=== PATIENT | female | born 1960 | race Caucasian/White ===

== ENCOUNTER 2017-09-15 19:44 | Emergency (ER) | payer MEDICARE, MEDICAID, SELFPAY ==
[2017-09-15 19:45] VITALS: BP 163/94; PULSE 118; RESP 16; TEMP 36.8; O2SAT 99; BMI 23.3
--- NOTE | 2017-09-15 20:31 | ED.DCSUM_ITS ---
- ER Visit Summary Date of Service: 09/15/17 Chief Complaint: [Need for medication refills History of Present Illness: The patient is a 57 F [presents to the emergency department with complaint of needing her medications refilled. Patient states that she went to senior living in March for 6 months and just got out a week ago. Patient states that because she was in senior living she missed several appointments that had been established with her primary care physician and when she try to make a follow-up appointment when she got out of senior living could not get past the studio operations manager to get in and be seen. Patient was receiving some of her medications in senior living since being out now was running out of her medications. Patient does have multiple medications that she would like to have refilled until she can get in with her primary care physician or find another physician including Lyrica, amphetamine salts, oxycodone, meloxicam, hydroxychloroquine, and alprazolam.] Physical Examination: [HEENT-PERRLA, EOMI. Cranial nerves II through XII grossly intact. TMs clear. Mucous membranes moist. No adenopathy. Cardiovascular-regular rate and rhythm without murmur or ectopy Lungs-clear to auscultation, chest wall stable without crepitus or subcu emphysema Abdomen-normoactive bowel sounds, soft, nontender, no rebound or rigidity, no peritoneal signs. Extremities-intact ?4, normal range of motion, normal pulses, atraumatic] Test Results: [None indicated] Emergency Department Course and Treatment: [Patient was written prescription since for several of her medications that she felt she needed to be with until she can follow-up with primary care physician] Treatment Plan: [Follow-up with primary care physician and I will also give her a referral to physician harvest contractor for no doc.] Disposition: [Discharged home in stable condition] Impression: [Medication refills] This note was generated with [employer] dictation software. It may contain incorrect words, spelling, and punctuation that were not noted in review of the chart prior to signing ED Disposition - Plan for ED Patient: Chief Complaint: General Illness Referrals: Asad Bullard DO [Primary Care Provider] -
--- NOTE | 2017-09-15 20:31 | ED.DEP ---
ED Disposition - Plan for ED Patient: Chief Complaint: General Illness Prescriptions: Oxycodone HCl/Acetaminophen [Percocet 5/325] 1 tab PO Q6H PRN PRN #20 tab PRN Reason: Pain Hydroxychloroquine [Plaquenil] 200 mg PO DAILYCM #30 tab Meloxicam 15 mg PO DAILY #30 tab Amphetamine [Adzenys Xr-Odt] 15.7 mg PO BID 30 Days #60 tab.rap.bp Pregabalin [Lyrica] 300 mg PO BID #60 cap ALPRAZolam [Xanax] 1 mg PO TID PRN #14 tab PRN Reason: Anxiety Referrals: Asad Bullard DO [Primary Care Provider] - Yariel Devlin MD [STAFF PHYSICIAN] - Additional Instructions: Follow up with family doctor for further refills
[2017-09-15 21:05] VITALS: BP 138/87; PULSE 95; RESP 15; O2SAT 98
--- NOTE | 2017-09-17 10:55 | ED.DEP ---
ED Disposition - Plan for ED Patient: Disposition: Home or Assisted Living Chief Complaint: General Illness Prescriptions: Oxycodone HCl/Acetaminophen [Percocet 5/325] 1 tab PO Q6H PRN PRN #20 tab PRN Reason: Pain Hydroxychloroquine [Plaquenil] 200 mg PO DAILYCM #30 tab Meloxicam 15 mg PO DAILY #30 tab Amphetamine [Adzenys Xr-Odt] 15.7 mg PO BID 30 Days #60 tab.rap.bp Dextroamphetamine/Amphetamine [Adderall 15 mg Tablet] 15 mg PO BID #60 tab Pregabalin [Lyrica] 300 mg PO BID #60 cap ALPRAZolam [Xanax] 1 mg PO TID PRN #14 tab PRN Reason: Anxiety Referrals: Yariel Devlin MD [STAFF PHYSICIAN] - Asda Bullard DO [Primary Care Provider] - Additional Instructions: Follow up with family doctor for further refills
== END 2017-09-15 21:06 | disposition home or self-care (01) ==
LOC: ED 20:37
PROVIDERS: Emergency Provider Emergency Medicine; Family Provider Family Medicine; PCP Family Medicine
DX: Z76.0 Encounter for issue of repeat prescription (principal); M79.7 Fibromyalgia; G43.909 Migraine, unspecified, not intractable, without status migrainosus; G62.9 Polyneuropathy, unspecified; F90.9 Attention-deficit hyperactivity disorder, unspecified type; F32.9 Major depressive disorder, single episode, unspecified; F41.9 Anxiety disorder, unspecified; Z72.0 Tobacco use; Z79.899 Other long term (current) drug therapy
CPT/HCPCS: 99282

== ENCOUNTER → 2017-11-02 16:08 | Outpatient (CLI) | payer MEDICARE, MEDICAID, SELFPAY ==
[2017-11-02 17:38] LABS: Erythrocyte Sedimentation Rate 21 mm/hr (0-30)
[2017-11-02 17:50] LABS: CRP < 2.90 mg/L (0.0-3.0)
[2017-11-06 10:18] LABS: ANTINUCLEAR ANTIBODIES DIRECT Negative (Negative)
== END ==
PROVIDERS: Family Provider Family Medicine; PCP Family Medicine; Visit Provider Family Medicine
DX: M06.9 Rheumatoid arthritis, unspecified (principal); M35.00 Sjogren syndrome, unspecified; G89.29 Other chronic pain; Z51.81 Encounter for therapeutic drug level monitoring
CPT/HCPCS: 36415; 85652; 86038; 86140; 86200; 86225; 86235; 86431

== ENCOUNTER → 2018-06-10 16:52 | Outpatient (CLI) | payer MEDICARE, MEDICAID, SELFPAY ==
[2018-06-10 17:50] LABS: Absolute Lymphocyte Count 3.22 X10^3/ul (0.83-4.51); Absolute Neutrophil Count 4.9 X10^3/uL (2.0-7.7); Basophil# 0.04 X10^3/uL; Basophil% 0.4 % (0-1); Eosinophil# 0.15 X10^3/uL; Eosinophils% 1.7 % (0-5); Hematocrit 40.4 % (37-47); Hemoglobin 12.5 g/dl (12.0-15.0); Lymphocyte # 3.22 X10^3/ul (4.0); Lymphocyte % 35.9 % (19-41); Mean Corp Hgb Conc 30.9 g/gl (32-36); Mean Corpuscular Hgb 29.8 pg (27.0-32.0); Mean Corpuscular Volume 96.2 fL (81-99); Mean Platelet Vol. 11.1 fl (6.2-12.0); Monocyte# 0.61 X10^3/uL; Monocyte% 6.8 % (0-10); Neutrophil # 4.93 X10^3/uL (2.7-7.7); Platelet Count 245 K/mm3 (150-450); RBC Distribution Width CV 13.4 % (11.6-14.6); RBC Distribution Width SD 46.1 fl (35.1-43.9)
[2018-06-10 18:05] LABS: POSITIVE COUNT NO; POSITIVE DIFFERENTIAL NO; POSITIVE MORPHOLOGY NO
[2018-06-10 19:20] LABS: AST(SGOT) 29 U/L (15-37); Alanine Aminotransfer ALT/SGPT 26 U/L (13-56); Albumin, Serum 3.5 g/dL (3.2-5.0); Alkaline Phosphatase 127 U/L (45-117); Anion Gap 3 (5-15); BUN 16 mg/dL (7-18); BUN/Creat Ratio 22.9 RATIO (10-20); CRP < 2.90 mg/L (0.0-3.0); Calcium,Total 8.5 mg/dL (8.5-10.1); Chloride 109 mmol/L (98-107); EST Glomerular Filtration Rate 92 mL/min (>60); Est Glom Filt Rate - Afr Amer 112 mL/min (>60); Globulin 3.6 g/dL (2.2-4.2); Glucose 84 mg/dL (74-106); Potassium 4.3 mmol/L (3.5-5.1); Protein, Total 7.1 g/dL (6.4-8.2); Sodium Level 142 mmol/L (136-145)
== END ==
PROVIDERS: Family Provider Family Medicine; PCP Family Medicine; Visit Provider Family Medicine
DX: R10.13 Epigastric pain (principal); R00.0 Tachycardia, unspecified; M06.9 Rheumatoid arthritis, unspecified; Z51.81 Encounter for therapeutic drug level monitoring
CPT/HCPCS: 36415; 80053; 85025; 86140

== ENCOUNTER → 2019-04-15 16:43 | Outpatient (CLI) | payer MEDICARE, MEDICAID, SELFPAY ==
[2019-04-15 17:36] LABS: Erythrocyte Sedimentation Rate 9 mm/hr (0-30)
[2019-04-15 18:27] LABS: CRP < 2.90 mg/L (0.0-3.0)
[2019-04-16 10:58] LABS: Hepatitis B Surface Antigen Non-Reactive (Nonreactive)
[2019-04-18 03:07] LABS: QNTFERON TB Mitogen Value > 10.00 IU/mL (.); QNTFERON TB Nil Value 0.05 IU/mL (.); QNTFERON TB1+ Ag Value 0.04 IU/mL (.); QNTFERON TB2+ Ag Value 0.04 IU/mL (.)
[2019-04-18 13:15] LABS: QNTIFERON TB Positive Criteria Negative (Negative)
== END ==
PROVIDERS: PCP Family Medicine; Visit Provider Family Medicine
DX: M06.9 Rheumatoid arthritis, unspecified (principal); M35.00 Sjogren syndrome, unspecified; G89.29 Other chronic pain; Z51.81 Encounter for therapeutic drug level monitoring
CPT/HCPCS: 36415; 85652; 86140; 86431; 86480; 87340

== ENCOUNTER → 2022-04-04 | Outpatient (CLI) | payer MEDICARE, MEDICAID, SELFPAY ==
[2022-04-04 18:02] LABS: Absolute Lymphocyte Count 2.13 X10^3/uL (0.83-4.51); Absolute Neutrophil Count 4.5 X10^3/uL (2.0-7.7); Basophil# 0.06 X10^3/uL; Basophil% 0.8 % (0-1); Eosinophil# 0.07 X10^3/uL; Eosinophils% 0.9 % (0-5); Lymphocyte # 2.13 X10^3/ul (0.83-4.51); Lymphocyte % 28.6 % (19-41); Mean Corp Hgb Conc 31.7 g/dL (32-36); Mean Corpuscular Hgb 29.9 pg (27.0-32.0); Mean Corpuscular Volume 94.3 fL (81-99); Mean Platelet Vol. 11.6 fl (6.2-12.0); Monocyte# 0.66 X10^3/uL; Monocyte% 8.8 % (0-10); NRBC Flagged by Analyzer 0 % (0-5); Neutrophil # 4.52 X10^3/uL (2.7-7.7); Neutrophil % 60.6 % (47-70); Platelet Count 300 K/mm3 (150-450); RBC Distribution Width CV 12.6 % (11.6-14.6); RBC Distribution Width SD 43.8 fl (35.1-43.9); Red Blood Count 4.35 M/mm3 (4.2-5.4); White Blood Count 7.5 K/mm3 (4.4-11.0)
[2022-04-04 18:26] LABS: Erythrocyte Sedimentation Rate 7 mm/hr (0-30)
[2022-04-04 18:36] LABS: Amphetamine Urine VISTA POSITIVE (<1000 ng/mL); Barbiturate Urine VISTA POSITIVE (< 200 ng/mL); Benzodiazepine Urine VISTA POSITIVE (< 200 ng/mL); Cocaine Urine VISTA NEGATIVE (< 300 ng/mL); Ecstacy Urine VISTA POSITIVE (< 500 ng/mL); Methadone Urine VISTA NEGATIVE (< 300 ng/mL); PCP Urine VISTA NEGATIVE (< 25 ng/mL); THC Urine VISTA POSITIVE (< 50 ng/mL); Vista UDS pH Range 5
[2022-04-04 19:01] LABS: ALB/GLOB Ratio 1.2 RATIO (0.9-2.4); AST(SGOT) 13 U/L (15-37); Alanine Aminotransfer ALT/SGPT 28 U/L (13-56); Albumin, Serum 3.6 g/dL (3.2-5.0); Alkaline Phosphatase 90 U/L (45-117); Anion Gap 6 (5-15); BUN 15 mg/dL (7-18); BUN/Creat Ratio 22.6 RATIO (10-20); CPK Total, Creatine Kinase 89 U/L (26-192); CRP < 2.90 mg/L (0.0-3.0); Calcium,Total 8.7 mg/dL (8.5-10.1); Chloride 111 mmol/L (98-107); Creatinine, Serum 0.66 mg/dL (0.55-1.02); EST Glomerular Filtration Rate 97 mL/min (>60); Est Glom Filt Rate - Afr Amer 117 mL/min (>60); Globulin 3.1 g/dL (2.2-4.2); Glucose 81 mg/dL (74-106); Protein, Total 6.7 g/dL (6.4-8.2); Sodium Level 145 mmol/L (136-145); Thyroid Stim Hormone (TSH) 1.75 uIU/mL (0.358-3.74)
[2022-04-04 19:55] LABS: OXY Internal Control LINE = VALID (VALID); Oxycodone Drug Screen Positive (<100 ng/mL)
== END | disposition home or self-care (01) ==
LOC: BFHLAB 16:16
PROVIDERS: PCP Family Medicine; Visit Provider Family Medicine
DX: M79.10 Myalgia, unspecified site (principal); M06.9 Rheumatoid arthritis, unspecified; R53.1 Weakness; R53.83 Other fatigue; F11.90 Opioid use, unspecified, uncomplicated; Z79.899 Other long term (current) drug therapy
CPT/HCPCS: 36415; 80053; 80307; 80365; 82550; 84443; 85025; 85652; 86140; 86431; G0480

== ENCOUNTER → 2023-07-03 | Outpatient (CLI) | payer MEDICARE, MEDICAID, SELFPAY ==
[2023-07-03 17:50] LABS: Absolute Lymphocyte Count 2.04 X10^3/uL (0.83-4.51); Absolute Neutrophil Count 3.6 X10^3/uL (2.0-7.7); Basophil# 0.04 X10^3/uL; Basophil% 0.6 % (0-1); Eosinophil# 0.04 X10^3/uL; Eosinophils% 0.6 % (0-5); Hematocrit 38.6 % (37-47); Hemoglobin 12.3 g/dL (12.0-15.0); Lymphocyte # 2.04 X10^3/ul (0.83-4.51); Lymphocyte % 32.8 % (19-41); Mean Corp Hgb Conc 31.9 g/dL (32-36); Mean Corpuscular Hgb 29.3 pg (27.0-32.0); Mean Corpuscular Volume 91.9 fL (81-99); Mean Platelet Vol. 11.5 fl (6.2-12.0); Monocyte# 0.48 X10^3/uL; Monocyte% 7.7 % (0-10); NRBC Flagged by Analyzer 0 % (0-5); Neutrophil # 3.61 X10^3/uL (2.7-7.7); Neutrophil % 58.1 % (47-70); Platelet Count 258 K/mm3 (150-450); RBC Distribution Width CV 13.2 % (11.6-14.6); RBC Distribution Width SD 45.1 fl (35.1-43.9); White Blood Count 6.2 K/mm3 (4.4-11.0)
[2023-07-03 18:02] LABS: Erythrocyte Sedimentation Rate 3 mm/hr (0-30)
[2023-07-03 18:12] LABS: Vitamin D,25 Hydroxy 16.2 ng/mL
[2023-07-03 18:32] LABS: ALB/GLOB Ratio 1.1 RATIO (0.9-2.4); AST(SGOT) 20 U/L (15-37); Alanine Aminotransfer ALT/SGPT 33 U/L (13-56); Albumin, Serum 3.6 g/dL (3.2-5.0); Alkaline Phosphatase 134 U/L (45-117); Anion Gap 7 (5-15); BUN 16 mg/dL (7-18); BUN/Creat Ratio 19.8 RATIO (10-20); CRP < 2.90 mg/L (0.0-3.0); Calcium,Total 8.8 mg/dL (8.5-10.1); Chloride 105 mmol/L (98-107); Creatinine, Serum 0.81 mg/dL (0.55-1.02); EST Glomerular Filtration Rate 76 mL/min (>60); Est Glom Filt Rate - Afr Amer 92 mL/min (>60); Globulin 3.4 g/dL (2.2-4.2); Glucose 110 mg/dL (74-106); Potassium 3.7 mmol/L (3.5-5.1); Sodium Level 138 mmol/L (136-145)
[2023-07-05 13:52] LABS: CCP IgG Antibodies 95 units (0-19)
== END | disposition home or self-care (01) ==
LOC: BFHLAB 16:01
PROVIDERS: PCP Family Medicine; Referring Provider Family Medicine; Visit Provider Family Medicine
DX: M06.9 Rheumatoid arthritis, unspecified (principal); R53.83 Other fatigue; E55.9 Vitamin D deficiency, unspecified; Z51.81 Encounter for therapeutic drug level monitoring
CPT/HCPCS: 36415; 80053; 82306; 85025; 85652; 86140; 86200; 86431

== ENCOUNTER → 2024-03-05 | Outpatient (CLI) | payer MEDICAID, MEDICARE, SELFPAY | END | disposition home or self-care (01) | PROVIDERS: PCP Family Medicine; Referring Provider Family Medicine; Visit Provider Family Medicine | DX: Z79.899 Other long term (current) drug therapy (principal) ==

== ENCOUNTER → 2024-07-18 | Outpatient (CLI) | payer MEDICARE, MEDICAID, SELFPAY ==
[2024-07-18 18:00] LABS: OXY Internal Control LINE = VALID (VALID); Oxycodone Drug Screen Positive (<100 ng/mL)
[2024-07-18 18:29] LABS: Amphetamine Urine PRESUMPTIVE POSITIVE (<1000 ng/mL); Barbiturate Urine PRESUMPTIVE POSITIVE (< 200 ng/mL); Benzodiazepine Urine PRESUMPTIVE POSITIVE (< 200 ng/mL); Buprenorphine Urine NEGATIVE (< 200 ng/mL); Cocaine Urine NEGATIVE (< 300 ng/mL); Fentanyl, Urine NEGATIVE; Methadone Urine NEGATIVE (< 300 ng/mL); Opiates Urine NEGATIVE (< 300 ng/mL); Oxycodone, Urine PRESUMPTIVE POSITIVE (< 100 ng/mL); PCP Urine NEGATIVE (< 25 ng/mL); THC Urine PRESUMPTIVE POSITIVE (< 50 ng/mL)
== END | disposition home or self-care (01) ==
LOC: LABSPEC 13:01
PROVIDERS: PCP Family Medicine; Referring Provider Family Medicine; Visit Provider Family Medicine
DX: F11.90 Opioid use, unspecified, uncomplicated (principal); Z79.899 Other long term (current) drug therapy
CPT/HCPCS: 80307; 80365; G0480

== ENCOUNTER → 2024-12-10 | Outpatient (CLI) | payer MEDICARE, MEDICAID, SELFPAY ==
[2024-12-10 13:31] LABS: Barbiturate Urine PRESUMPTIVE POSITIVE (< 200 ng/mL); Benzodiazepine Urine PRESUMPTIVE POSITIVE (< 200 ng/mL); PCP Urine NEGATIVE (< 25 ng/mL); THC Urine NEGATIVE (< 50 ng/mL)
== END | disposition home or self-care (01) ==
LOC: LABSPEC 12:12
PROVIDERS: PCP Family Medicine; Referring Provider Family Medicine; Visit Provider Family Medicine
DX: Z79.899 Other long term (current) drug therapy (principal)
CPT/HCPCS: 80307

== ENCOUNTER 2025-02-07 13:27 | Emergency (ER) | payer MEDICARE, MEDICAID, SELFPAY ==
[2025-02-07 13:27] VITALS: BP 128/90; PULSE 95; RESP 14; TEMP 36.1; O2SAT 96; BMI 17.6
--- OUTSIDE RECORDS SUMMARY | 2025-02-07 13:52 | XMS RPT_ITS | CCD ---
Author Organization [facility]ini[facility] Care Team Providers Care Boss Dyer Name Role Phone Sebastian Bullard Unavailable Unavailable Ivanauskas, Saulius Unavailable Unavailable Ivanauskas, Saulius Unavailable Unavailable JUAN MIGUELSEBASTIAN Unavailable Unavailable STADNICK, AKANKSHA OSMAR Unavailable Unavailab le JUAN MIGUELSEBASTIAN Unavailable Unavailable JUAN MIGUELSEBASTIAN Unavailable Unavailable STADNICK, AKANKSHA OSMAR Unavailable Unavailab le JUAN MIGUEL, SEBASTIAN ANGELES Unavailable Unavailable Stadnick, Akanksha S Unavailable Unavailable Stadnick, Akanksha S Unavailable Unavailable Stadnick, Akanksha S Unavailable Unavailable Stadnick, Akanksha S Unavailable Unavailable Sebastian Bullard Primary Care Provider Sebastian Bullard DO Primary Care Provider MEGHA VARGAS II Attending Unavailabbi e SEBASTIAN BULLARD Primary Care Unavailable Dr. Sebastian Bullard DO Primary Care Provider Dr. Sebastian Bullard DO Attending Provider Dr. Sebastian Bullard DO Referring Provider Dr. Sebastian Bullard DO Primary Care Physician Dr. Sebastian Bullard DO Attending Physician Dr. Sebastian Bullard DO Referring Provider Sebastian Bullard Referring Unavailable Sebastian Bullard Primary Care Unavailable Sebastian Bullard Attending Unavailable Sebastian Bullard Referring Unavailable Sebastian Bullard Primary Care Unavailable Sebastian Bullard Attending Unavailable Sebastian Bullard Referring Unavailable Sebastian Bullard Primary Care Unavailable Sebastian Bullard Attending Unavailable Sebastian Bullard Primary Care Unavailable Sebastian Bullard Attending Unavailable Sebastian Bullard Referring Unavailable Allergies Allergy Classification Reported Allergen(s) Allergy Type Date of Onset Reaction(s) Facility (1 source) No Known Medication Allergies; Translations: [No Known Medication Allergies] Propensity to adverse reactions to drug (disorder) [facility] Repository (4 sources) Sertraline; Translations: [SERTRALINE HCL] Drug Allergy 0 Mental Status Change [facility] Repository (2 sources) Bees; Translations: [BEES] Allergy to substance 2 Shortness of Breath [facility] Medications Current Medications Medication Drug Class(es) Dates Sig (Normalized) Sig (Original) acetaminophen 325 mg / butalbital 50 mg / caffeine 40 mg oral tablet (6 sources) Barbiturate, Central Nervous System Stimulant, Methylxanthine Start: 01-12-2015 take 1 tablet by mouth once daily butalbital-aceta minophen-caffein e (FIORICET, ESGIC) 50-325-40 mg per tablet Take 1 tablet by mouth daily . 0 01/12/2015 Active Start: 01-12-2015 take 1 tablet by ivy th every four hours Tcyqclsmsd-Aeilatmfatcub-Ixkv Active 1 T ABLET PO Q4H January 12, 2015 12:00am Start: 12-21-2014 Comment on above: Take 1 tablet by ivy th every 4 hours as needed. acetaminophen 325 mg / oxyCODONE hydrochloride 7.5 mg oral tablet (6 sources) Opioid Agonist Start: 02-02-2018 oxyCODONE-acetaminop hen (PERCOCET) 7.5-325 mg per tablet Take by mouth daily as needed . 0 02/02/2018 Active Start: 09-15-2017 Start: 09-15-2017 take 1 tablet by ivy th every six hours as needed Oxycodone-Acetaminophen Active 1 TABLET PO EVERY 6 HOURS NEEDED September 15, 2017 12:00am Start: 06-29-2014 take 1 tablet by ivy th every four hours as needed oxyCODONE-acetaminophen (PERCOCET) 5-325 mg tablet Take 1 tablet by mouth every 4 hours as needed for Pain. 15 tablet 0 06/29/2014 Active Comment on above: Take 1 tablet by ivy th every 4 hours as needed for Pain. ALPRAZolam 1 mg oral tablet (10 sources) Benzodiazepine Start: 12-25-2013 take 1 tablet by mouth three times daily as needed for anxiety Start: 12-25-2013 take 1 tablet by ivy th once daily as needed ALPRAZolam (XANAX) 1 MG tablet Take 1 mg by mouth daily as needed . 0 09/15/2017 Active Comment on above: Take 1 tablet by ivy th three times daily. 24 hr amphetamine 15.7 mg extended release oral tablet (4 sources) Central Nervous System Stimulant Start: 2017 take 1 tablet by mouth twice daily benoxinate hydrochloride 4 mg/ml / fluorescein sodium 2.5 mg/ml ophthalmic solution (1 source) Diagnostic Dye Start: 2021 End: 2021 fluorescein-benoxinate 0.25-0.4 % 1 Drop (FLURESS) DULoxetine 60 mg delayed release oral capsule (1 source) Serotonin and Norepinephrine Reuptake Inhibitor take 1 capsule by mouth once daily DULoxetine (CYMBALTA) 60 MG capsule Take 60 mg by mouth daily . 0 Active hydroxychloroquine sulfate 200 mg oral tablet (10 sources) Antimalarial, Antirheumatic Agent Start: 2017 take 1 tablet by mouth twice daily hydroxychloroquine (PLAQUENIL) 200 mg tablet Take 200 mg by mouth 2 (two) times a day . 0 09/15/2017 Active Start: 01-12-2015 take 1 tablet by mouth once da vikas at mealtime Comment on above: Take by mouth once d aily. Ketorolac (4 sources) Nonsteroidal Anti-inflammatory Drug, Cyclooxygenase Inhibitor Start: 01-12-2015 Start: 01-12-2015 Ketorolac Acti ve 1 NMA OP EVERY 6 HOURS NEEDED as needed for Allergies January 12, 2015 12:00am Start: 01-12-2015 Ketorolac Acti ve 1 DRP OP EVERY 6 HOURS NEEDED January 12, 2015 12:00am Start: 01-12-2015 Ketorolac Acti ve 1 DRP OP EVERY 6 HOURS NEEDED January 11, 2015 11:00pm meloxicam 15 mg oral tablet (10 sources) Nonsteroidal Anti-inflammatory Drug Start: 01-12-2015 take 1 tablet by mouth once daily Comment on above: Take 15 mg by mouth once daily. phenylephrine hydrochloride 25 mg/ml ophthalmic solution (1 source) alpha-1 Adrenergic Agonist Start: 01-17-2022 End: 01-18-2022 PHENYLephrine 2.5 % 1 Drop (AK-DILATE, YEISON-SYNEPHRINE) predniSONE 20 mg oral tablet (2 sources) Start: 02-01-2018 predniSONE (DELTASONE) 20 MG tablet Take by mouth daily . 0 02/01/2018 Active Start: 01-25-2015 take 1 tablet by ivy once daily predniSONE (DELTASONE) 10 mg tablet Take 1 tablet by mouth once daily. 30 tablet 0 01/25/2015 Active Comment on above: Take 1 tablet by ivy once daily. pregabalin 300 mg oral capsule (10 sources) Start: 02-02-2018 LYRICA 300 mg capsule Take by mouth daily . 0 02/02/2018 Active Start: 12-25-2013 take 1 capsule by mouth twice daily Comment on above: Take 1 capsule by mo [facility] twice daily. tropicamide 10 mg/ml ophthalmic solution (1 source) Anticholinergic Start: 01-17-2022 End: 01-18-2022 tropicamide 1 % 1 Drop (MYDRIACYL) Completed/Discontinued Medications Medication Drug Class(es) Dates Sig (Normalized) Sig (Original) [id number] 200 actuat albuterol 0.09 mg/actuat metered dose inhaler (1 source) beta2-Adrenergic Agonist Start: 01-12-2014 take 2 puff(s) by inhalation every six hours as needed albuterol HFA (PROVENTIL HFA) 90 mcg/actuation inhaler Inhale 2 Puffs as instructed every 6 hours as needed. 1 Inhaler 3 01/12/2014 Active Comment on above: Inhale 2 Puffs as in structed every 6 hours as needed. amphetamine aspartate 3.75 mg / amphetamine sulfate 3.75 mg / dextroamphetamine saccharate 3.75 mg / dextroamphetamine sulfate 3.75 mg oral tablet (11 sources) Central Nervous System Stimulant Start: 02-01-2018 amphetamine-dext roamphetamine 15 mg tablet Take by mouth. 0 02/01/2018 Active Start: 01-12-2015 take 1 tablet by mouth twice d aily Comment on above: Take 1 tablet by ivy twice daily. Take by mouth. Artificial Saliva, CMCe-Lytes, spra (1 source) Start: 08-13-19 15 Artificial Saliva, CMCe-Lytes, spra Use 1 [place] as instructed every 4 hours as needed. 60 mL 1 08/12/2014 Active Comment on above: Use 1 [place] as instr ucted every 4 hours as needed. aspirin 325 mg / carisoprodol 200 mg oral tablet (1 source) Platelet Aggregation Inhibitor, Nonsteroidal Anti-inflammatory Drug, Muscle Relaxant Start: 01-26-20 15 take 1 tablet by mouth every eight hours as needed carisoprodol-aspirin (SOMA COMPOUND) 200-325 mg per tablet Take 1 tablet by mouth three times daily as needed. 60 tablet 2 01/25/2015 Active Comment on above: Take 1 tablet by ivy th three times daily as needed. Blood Pressure Cuff - Home Use (1 source) Start: 04-09-19 15 Blood Pressure Cuff - Home Use BLOOD PRESSURE CUFF FOR HOME USE. DX: LABILE BLOOD PRESSURE 1 Each 0 04/09/2014 Active Comment on above: BLOOD PRESSURE CUFF FOR HOME USE. DX: LABILE BLOOD PRESSURE citalopram 40 mg oral tablet (1 source) Serotonin Reuptake Inhibitor Start: 08-01-19 14 take 1 tablet by mouth once daily citalopram (CELEXA) 40 mg tablet Take 1 tablet by mouth once daily. 0 07/31/2013 Active Comment on above: Take 1 tablet by ivy th once daily. COMPOUNDED PRESCRIPTION (2 sources) Start: 01-21-20 15 COMPOUNDED PRESCRIPTION Diclofenac 3% cyclobenzaprine HCL 2% Lidocain HCL 2% Apply 1-2 grams (1-2 pumps) to the affected area TID-QID 240 g 0 01/20/2015 Active Start: 12-04-2014 COMPOUNDED PRE SCRIPTION Indications: Foot pain, unspecified laterality , Fibromyalgia Bacloclofen 2%, Doxepin 5%, gabapentin 6% meloxicam 0.5% topirimate2% pentyxyphoilline 3% in emoliant cream. Apply 1-2 pumps (grams) to affected area 3-4 times daily 240 mL 2 12/04/2014 Active Comment on above: Bacloclofen 2%, Doxe pin 5%, gabapentin 6% meloxicam 0.5% topirimate2% pentyxyphoilline 3% in emoliant cream. Apply 1-2 pumps (grams) to affected area 3-4 times daily Diclofenac 3% cyclob enzaprine HCL 2% Lidocain HCL 2% Apply 1-2 grams (1-2 pumps) to the affected area TID-QID [id number] 0.3 ml EPINEPHrine 1 mg/ml auto-injector (1 source) alpha-Adrenergic Agonist, beta-Adrenergic Agonist, Catecholamine Start: EPINEPHrine (EPIPEN) 0.3 mg/0.3 mL (1:1,000) atIn Indications: Toxic effect of venom(989.5) use as directed for allergic reaction. Seek emergent medical immediately after use. 1 Each 1 06/02/2014 Active Comment on above: use as directed for allergic reaction. Seek emergent medical immediately after use. Leucovorin (1 source) Folate Analog LEUCOVORIN CALCI UM ORAL Take by mouth. 0 Active Comment on above: Take by mouth. lpmmxbpmj-vznwlx-ynzmxm ine HCl 2.5-2.5-3.88 % crea (1 source) lidocaine-priloc -li docaine HCl 2.5-2.5-3.88 % crea Apply to affected area. 0 Active Comment on above: Apply to affected ar ea. 24 hr loratadine 10 mg / pseudoephedrine sulfate 240 mg extended release oral tablet (1 source) alpha-Adrenergic Agonist Start: take 1 tablet by mouth once daily loratadine-pseudoep hedrine ER (CLARITIN-D 24 HOUR) 10-240 mg Tb24 Take 1 tablet by mouth once daily. 30 tablet 2 03/26/2015 Active Comment on above: Take 1 tablet by ivy th once daily. nabumetone 750 mg oral tablet (1 source) Nonsteroidal Anti-inflammatory Drug Start: nabumetone (RELAFEN) 750 mg tablet naproxen 500 mg oral tablet (1 source) Nonsteroidal Anti-inflammatory Drug Start: 016 naproxen (NAPROSYN) 500 mg tablet promethazine hydrochloride 1.25 mg/ml oral solution (2 sources) Phenothiazine Start: 015 take 6.25 mg by mouth every six hours as needed promethazine (PHENERGAN) 6.25 mg/5 mL syrup Take 5 mL by mouth four times daily as needed. 240 mL 1 01/14/2015 Active Start: 01-14-2015 take 12.5 mg by mout h twice daily promethazine (PHENERGAN) 6.25 mg/5 mL syrup Take 12.5 mg by mouth 2 (two) times a day . 0 01/14/2015 Active Comment on above: Take 5 mL by mouth f our times daily as needed. tiZANidine 4 mg oral tablet (1 source) Central alpha-2 Adrenergic Agonist Start: 5 take 1 tablet by mouth every eight hours as needed tiZANidine (ZANAFLEX) 4 mg tablet Take 1 tablet by mouth every 8 hours as needed (muscle spasms). 30 tablet 0 12/21/2014 Active Comment on above: Take 1 tablet by ivy th every 8 hours as needed (muscle spasms). varenicline (TYRVAYA) 0.03 mg/spray nasal spray (1 source) Start: 2 take 1 spray(s) nasal route every twelve hours varenicline (TYRVAYA) 0.03 mg/spray nasal spray Use 1 [place] in each nostril every 12 hours. 4.2 mL 6 01/17/2022 Active Comment on above: Use 1 [place] in each nostril every 12 hours. Problems Active Problems Problem Classification Problem Date Documented Date Episodic/Chronic Attention-deficit, conduct, and disruptive behavior disorders (1 source) Attention deficit hyperactivity disorder; Translations: [Attention-deficit hyperactivity disorder, unspecified type] Onset: 0 11-18-2009 Chronic Blindness and vision defects (5 sources) Bilateral hyperopia of eyes; Translations: [Hypermetropia, bilateral] Onset: 6 Episodic Headache; including migraine (1 source) Refractory migraine without aura; Translations: [Migraine without aura, intractable, without status migrainosus] Onset: 0 05-05-2009 Chronic Inflammation; infection of eye (except that caused by tuberculosis or sexually transmitteddisease) (2 sources) Keratoconjunctivitis sicca; Translations: [Keratoconjunctivitis sicca, not specified as Sjogren's, bilateral] Onset: 6 Chronic Other aftercare (2 sources) Drug therapy finding; Translations: [Other superintendent terminal (current) drug therapy] Onset: 6 Episodic Other aftercare (2 sources) Other usp (current) drug therapy; Translations: [Other superintendent terminal (current) drug therapy] Onset: 4 Episodic Other congenital anomalies (2 sources) 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; Translations: [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] Onset: 8 Chronic Other connective tissue disease (4 sources) H/O: musculoskeletal disease; Translations: [Personal history of other diseases of the musculoskeletal system and connective tissue] 01-12-2015 Episodic Residual codes; unclassified (2 sources) Pain, unspecified; Translations: [Pain, unspecified] Onset: 8 Retinal detachments; defects; vascular occlusion; and retinopathy (1 source) Hemorrhage of left retina; Translations: [Retinal hemorrhage, left eye] Onset: 8 11-08-2017 Chronic Screening and history of mental health and substance abuse codes (4 sources) H/O: anxiety state; Translations: [Personal history of other mental and behavioral disorders] 01-12-2015 Episodic Past or Other Problems Problem Classification Problem Date Documented Date Episodic/Chronic Headache; including migraine (1 source) Drug-induced headache, not elsewhere classified, not intractable; Translations: [Drug induced headache, not elsewhere classified] Onset: 05-05-2009 05-05-2009 Episodic Inflammation; infection of eye (except that caused by tuberculosis or sexually transmitteddisease) (1 source) Internal hordeolum of left lower eyelid; Translations: [Hordeolum internum left lower eyelid] Onset: 11-30-2015 11-30-2015 Episodic Other connective tissue disease (1 source) Fibromyalgia; Translations: [Fibromyalgia] Onset: 08-20-2009 08-20-2009 Episodic Other connective tissue disease (1 source) Capsulitis; Translations: [Other enthesopathies, not elsewhere classified] Onset: 04-03-2011 04-03-2011 Episodic Other skin disorders (2 sources) Alopecia; Translations: [Androgenic alopecia, unspecified] Onset: 12-17-2008 12-17-2008 Episodic Other skin disorders (1 source) Telogen effluvium; Translations: [Telogen effluvium] Onset: 12-17-2008 12-17-2008 Episodic Residual codes; unclassified (1 source) History of refractive surgery; Translations: [Other specified postprocedural states] Onset: 11-30-2015 11-30-2015 Episodic Substance-related disorders (1 source) Opioid use, unspecified, uncomplicated; Translations: [Opioid use, unspecified, uncomplicated] Onset: 09-06-2024 Episodic Results Test Name Value Interpretation Reference Range Facility Urine Drug Screen (VISTA)on 12-10-2024 AMPHETAMINES Positive Normal <1000 ng/mL [facility] Comment on above: Order Comment: UNK Result Comment: If c onfirmation testing is needed, a separate order will be required to send out testing to the reference laboratory. Performed By: #### L [id number] #### [facility] [address] [place] [address] BARBITIURATES Positive Normal < 200 ng/mL [facility] Comment on above: Order Comment: UNK Result Comment: If c onfirmation testing is needed, a separate order will be required to send out testing to the reference laboratory. Performed By: #### L [id number] #### [facility] [address] [place] [address] BENZODIAZIPINE Positive Normal < 200 ng/mL [facility] Comment on above: Order Comment: UNK Result Comment: If c onfirmation testing is needed, a separate order will be required to send out testing to the reference laboratory. Performed By: #### L 505.5000 #### [facility] [address] [facility] [address] BUP Ur Drug Scr Negative Normal < 200 ng/mL [facility] Comment on above: Order Comment: UNK Performed By: #### L 505.5000 #### [facility] [address] [facility] [address] COCAINE Negative Normal < 300 ng/mL [facility] Comment on above: Order Comment: UNK Performed By: #### L 505.5000 #### [facility] [address] [facility] [address] Fentanyl Negative Normal <5 ng/mL [facility] Comment on above: Order Comment: UNK Result Comment: CONF IRMATORY TESTING FOR ALL POSITIVE URINE DRUG SCREEN RESULTS WILL ONLY BE SENT OUT UPON PHYSICIAN ORDER. [facility] Urine Drug Screen methods provide only preliminary analytical test results. A more specific alternate chemical method must be used in order to obtain a confirmed analytical result. Gas chromatography/mass spectrometery (GC/MS) is the preferred confirmatory method. Clinical consideration and professional judgement should be applied to any drug of abuse test result, particularly when preliminary positive results are used. Urine TCA testing must be ordered separately. Use test mnemonic: UTCA Performed By: #### L 505.5000 #### [facility] [address] [facility] [address] METHADONE Negative Normal < 300 ng/mL [facility] Comment on above: Order Comment: UNK Performed By: #### L 505.5000 #### [facility] [address] [facility] [address] OPIATES Negative Normal < 300 ng/mL [facility] Comment on above: Order Comment: UNK Performed By: #### L [id number] #### [facility] [address] [place] [id number] OXYCODONE Positive Normal < 100 ng/mL [facility] Comment on above: Order Comment: UNK Result Comment: If c onfirmation testing is needed, a separate order will be required to send out testing to the reference laboratory. Performed By: #### L 505.5000 #### [facility] [address] [facility] [address] PCP Negative Normal < 25 ng/mL [facility] Comment on above: Order Comment: UNK Performed By: #### L 505.5000 #### [facility] [address] [facility] [address] THC Negative Normal < 50 ng/mL [facility] Comment on above: Order Comment: UNK Performed By: #### L 505.5000 #### [facility] [address] [facility] [address] Amphetamine detection with 1 000 ng/mL as cutoffOrdered By: Sebastian Bullard on 12-09-2024 Amphetamines Screen method >1000 ng/mL Ql (U) Positive < 200 ng/mL [facility] Comment on above: If confirmation test ing is needed, a separate order will be required to send out testing to the reference laboratory. No Panel InformationOrdered By: Sebastian Bullard on 12-09-2024 Urine Buprenorphine Qualitative Negative < 200 ng/mL [facility] Urine Oxycodone Screen Positive < 100 ng/mL [facility] Comment on above: If confirmation test ing is needed, a separate order will be required to send out testing to the reference laboratory. Quantitative urine opiates m easurementOrdered By: Sebastian Bullard on 12-09-2024 Opiates Ql (U) Negative < 300 ng/mL [facility] Screening urine fentanyl balta surementOrdered By: Sebastian Bullard on 12-09-2024 fentaNYL Screen Ql (U) Negative <5 ng/mL [facility] Comment on above: CONFIRMATORY TESTING FOR ALL POSITIVE URINE DRUG SCREENRESULTS WILL ONLY BE SENT OUT UPON PHYSICIAN ORDER. [facility] Urine Drug Screen methods provide only preliminaryanalytical test results. A more specific alternate chemicalmethod must be used in order to obtain a confirmedanalytical result. Gas chromatography/mass spectrometery(GC/MS) is the preferred confirmatory method. Clinicalconsideration and professional judgement should be appliedto any drug of abuse test result, particularly whenpreliminary positive results are used. Urine TCA testing must be ordered separately. Use test mnemonic: UTCA Urine benzodiazepine levelOr dered By: Sebastian Bullard on 12-09-2024 Benzodiazepines Ql (U) Positive < 200 ng/mL [facility] Comment on above: If confirmation test ing is needed, a separate order will be required to send out testing to the reference laboratory. Urine cocaine levelOrdered B y: Sebastian Bullard on 12-09-2024 Cocaine Ql (U) Negative < 300 ng/mL [facility] Urine vuumb-0-kkvvyfgkxmgsyq abinol (THC) measurementOrdered By: Sebastian Bullard on 12-09-2024 Cannabinoids Screen Ql (U) Negative < 50 ng/mL [facility] Urine phencyclidine (PCP) de tectionOrdered By: Sebastian Bullard on 12-09-2024 Phencyclidine Ql (U) Negative < 25 ng/mL [facility] Amphetamine detection with 1 000 ng/mL as cutoffOrdered By: Sebastian Bullard on 07-18-2024 Amphetamines Screen method >1000 ng/mL Ql (U) Positive < 200 ng/mL [facility] Comment on above: If confirmation test ing is needed, a separate order will be required to send out testing to the reference laboratory. No Panel InformationOrdered By: Sebastian Bullard on 07-18-2024 Urine Buprenorphine Qualitative Negative < 200 ng/mL [facility] Oxycodone Urine Drug Screeno n 07-18-2024 OXY DRG SCREEN Positive Abnormal <100 ng/mL [facility] Comment on above: Order Comment: UNK Performed By: #### L 505.5000, [id number] #### [facility] [address] [place], [address] DRUG CONFIRM Normal [facility] Comment on above: Order Comment: UNK Result Comment: CONF IRMATORY TESTING FOR ALL POSITIVE URINE DRUG SCREEN RESULTS WILL ONLY BE SENT OUT UPON PHYSICIAN ORDER. The results of Urine Drug Screen methods provide only preliminary analytical test results. A more specific alternate chemical method must be used in order to obtain a confirmed analytical result. Gas chromatography/mass spectrometery (GC/MS) is the preferred confirmatory method. Clinical consideration and professional judgement should be applied to any drug of abuse test result, particularly when preliminary positive results are used. Performed By: #### L 505.5000, [id number] #### [facility] [address] [place], [address] Quantitative urine opiates m easurementOrdered By: Sebastian Bullard on 07-18-2024 Opiates Ql (U) Negative < 300 ng/mL [facility] Screening urine fentanyl balta surementOrdered By: Sebastian Bullard on 07-18-2024 fentaNYL Screen Ql (U) Negative [facility] Urine Drug Screen ([facility]ISTA)on 07-18-2024 AMPHETAMINES Positive Normal <1000 ng/mL [facility] Comment on above: Order Comment: UNK Result Comment: If c onfirmation testing is needed, a separate order will be required to send out testing to the reference laboratory. Performed By: #### L 505.5000, 0 #### [facility] [address] [place], [address] BARBITIURATES Positive Normal < 200 ng/mL [facility] Comment on above: Order Comment: UNK Result Comment: If c onfirmation testing is needed, a separate order will be required to send out testing to the reference laboratory. Performed By: #### L 505.5000, L50 #### [facility] [address] [place], [address] BENZODIAZIPINE Positive Normal < 200 ng/mL [facility] Comment on above: Order Comment: UNK Result Comment: If c onfirmation testing is needed, a separate order will be required to send out testing to the reference laboratory. Performed By: #### L 505.4999, 0 #### [facility] [address] [place], [address] BUP Ur Drug Scr Negative Normal < 200 ng/mL [facility] Comment on above: Order Comment: UNK Performed By: #### L 505.5000, 0 #### [facility] [address] [place], [address] COCAINE Negative Normal < 300 ng/mL [facility] Comment on above: Order Comment: UNK Performed By: #### L 505.5000, 0 #### [facility] [address] [place], [address] Fentanyl Negative Normal [facility] Comment on above: Order Comment: UNK Performed By: #### L 505.5000, 0 #### [facility] [address] [place], [address] METHADONE Negative Normal < 300 ng/mL [facility] Comment on above: Order Comment: UNK Performed By: #### L 505.5000, L505.6200 #### [facility] [address] [place], [address] OPIATES Negative Normal < 300 ng/mL [facility] Comment on above: Order Comment: UNK Performed By: #### L 505.5000, L505.6200 #### [facility] [address] [place], [address] OXYCODONE Positive Normal < 100 ng/mL [facility] Comment on above: Order Comment: UNK Result Comment: If c onfirmation testing is needed, a separate order will be required to send out testing to the reference laboratory. Performed By: #### L 505.5000, L505.6200 #### [facility] [address] [place], [address] PCP Negative Normal < 25 ng/mL [facility] Comment on above: Order Comment: UNK Performed By: #### L 505.5000, L505.6200 #### [facility] [address] [place], [address] THC Positive Normal < 50 ng/mL [facility] Comment on above: Order Comment: UNK Result Comment: If c onfirmation testing is needed, a separate order will be required to send out testing to the reference laboratory. Performed By: #### L 505.5000, L505.6200 #### [facility] [address] [place], [address] Urine benzodiazepine levelOr dered By: Sebastian Bullard on 07-18-2024 Benzodiazepines Ql (U) Positive < 200 ng/mL [facility] Comment on above: If confirmation test ing is needed, a separate order will be required to send out testing to the reference laboratory. Urine cocaine levelOrdered B y: Sebastian Bullard on 07-18-2024 Cocaine Ql (U) Negative < 300 ng/mL [facility] Urine [id number] abinol (THC) measurementOrdered By: Sebastian Bullard on 07-18-2024 Cannabinoids Screen Ql (U) Positive < 50 ng/mL [facility] Comment on above: If confirmation test ing is needed, a separate order will be required to send out testing to the reference laboratory. Urine phencyclidine (PCP) de tectionOrdered By: Sebastian Bullard on 07-18-2024 Phencyclidine Ql (U) Negative < 25 ng/mL [facility] Absolute lymphocyte countOrd ered By: Sebastian Bullard on 07-03-2023 Lymphocytes Auto (Unsp spec) [#/Vol] 2.04 10*3/uL 0.83-4.51 [facility] Automated lymphocyte count a s percentage of total leukocytesOrdered By: Sebastian AlatorreJuan Miguel on 07-03-2023 Lymphocytes/100 WBC Auto (Unsp spec) 32.8 % 19-41 [facility] Basophil percentageOrdered B y: Sebastian Bullard on 07-03-2023 Basophil percentage 303.0 IU/mL <15 [facility] Basophils/100 WBC (Bld) 0.6 % 0-1 [facility] Bilirubin [Mass/Vol] 0.50 mg/dL 0.20-1.00 [facility] Comment on above: For patients on eltr ombopag therapy, use of Dimension [place] TBIL is not recommended. Chloride [Moles/Vol] 105 mmol/L 98-107 [facility] Eosinophils/100 WBC (Bld) 0.6 % 0-5 [facility] Glucose [Mass/Vol] 110 mg/dL 74-106 [facility] Comment on above: Fasting Glucose resu lt from 100 to 125 mg/dL suggests IMPAIRED HOMEOSTASIS per A.D.A. criteria. Hemoglobin (Bld) [Mass/Vol] 12.3 g/dL 12.0-15.0 [facility] Monocytes/100 WBC (Bld) 7.7 % 0-10 [facility] Neutrophils (Bld) [#/Vol] 3.6 10*3/uL 2.0-7.7 [facility] Neutrophils/100 WBC (Bld) 58.1 % 47-70 [facility] Potassium [Moles/Vol] 3.7 mmol/L 3.5-5.1 [facility] Protein [Mass/Vol] 7.0 g/dL 6.4-8.2 [facility] Sodium [Moles/Vol] 138 mmol/L 136-145 [facility] WBC (Bld) [#/Vol] 6.2 10*3/uL 4.4-11.0 [facility] Determination of erythrocyte mean corpuscular volume (MCV)Ordered By: Sebastian Bullard on 07-03-2023 MCV (RBC) [Entitic vol] 91.9 fL 81-99 [facility] Erythrocyte distribution wid th ratioOrdered By: Sebastian Bullard on 07-03-2023 Erythrocyte distribution width (RBC) [Ratio] 13.2 % 11.6-14.6 [facility] Erythrocyte distribution wid th standard deviationOrdered By: Sebastian Bullard on 07-03-2023 Erythrocyte distribution width (RBC) [Entitic vol] 45.1 fL 35.1-43.9 [facility] Erythrocyte sedimentation ra teOrdered By: Sebastian Bullard on 07-03-2023 ESR (Bld) [Velocity] 3 mm/h 0-30 [facility] Hematocrit Auto (Bld) [Volum e fraction]Ordered By: Sebastian Bullard on 07-03-2023 Hematocrit (Bld) [Volume fraction] 38.6 % 37-47 [facility] Immature granulocytes/100 WB C Auto (Bld)Ordered By: Sebastian Bullard on 07-03-2023 Immature granulocytes/100 WBC (Bld) 0.200 % 0.0-0.9 [facility] Comment on above: IG% - Immature Granu locytes (promyelocytes, myelocytes and metamyelocytes) > 1% indicates that a LEFT SHIFT is Present. Laboratory - Chemistry and C hemistry - challengeOrdered By: Sebastian Bullard on 07-03-2023 Albumin/Globulin [Mass ratio] 1.1 {ratio} 0.9-2.4 [facility] ALP [Catalytic activity/Vol] 134 U/L 45-117 [facility] ALT [Catalytic activity/Vol] 33 U/L 13-56 [facility] CO2 [Moles/Vol] 26.0 mmol/L 21.0-32.0 [facility] Globulin (S) [Mass/Vol] 3.4 g/dL 2.2-4.2 [facility] Urea nitrogen/Creatinine [Mass ratio] 19.8 mg/mg 10-20 [facility] - Hematology and Cell countsOrdered By: Sebastian Bullard on 07-03-2023 MCH (RBC) [Entitic mass] 29.3 pg 27.0-32.0 [facility] MCHC (RBC) [Mass/Vol] 31.9 g/dL 32-36 [facility] Nucleated RBC/100 WBC (Bld) [Ratio] 0 % 0-5 [facility] Platelet mean volume (Bld) [Entitic vol] 11.5 fL 6.2-12.0 [facility] Platelets (Bld) [#/Vol] 258 10*3/uL 150-450 [facility] No Panel InformationOrdered By: Sebastian Bullard on 07-03-2023 C-Reactive Protein Extended Range < 2.90 mg/L 0.0-3.0 [facility] Comment on above: C-Reactive Protein ( CRP) provides useful information for thediagnosis, therapy and monitoring of inflammatory processesand associated diseases. For the evaluation of Relative Riskfor Cardiovascular Disease, a High Sensitivity CRP (HSCRP)should be ordered. Estimated GFR (MDRD) Amer 92 mL/min >60 [facility] Comment on above: GFR Calc Estimated GFR (MDRD) Non-Af Amer 76 mL/min >60 [facility] Comment on above: Non- GFR Calc Vitamin D 25-Hydroxy 16.2 ng/mL [facility] Comment on above: Vitamin D 25(OH) Sta tus Range Deficiency <20 ng/mL (50nmol/L) Insufficiency 20 - 30 ng/mL (50 - 75 nmol/L) Sufficiency 30 - 100 ng/mL (75 - 250 nmol/L) Toxicity >100 ng/mL (>250 nmol/L) RBC Auto (Bld) [#/Vol]Ordere d By: Sebastian Bullard on 07-03-2023 RBC (Bld) [#/Vol] 4.20 10*6/uL 4.2-5.4 [facility] Serum cyclic citrullinated p eptide IgG antibody assay (units/volume)Ordered By: Sebastian Bullard on 07-03-2023 Cyclic citrullinated peptide IgG Qn 95 units 0-19 [facility] Comment on above: Negative <20 Weak po sitive 20 - 39 Moderate positive 40 - 59 Strong positive >59Performed at: CB - [facility] [id number] [place], [place] [id number] Director: Daryl Main PhD, Phone: [phone] Serum or plasma calcium mitchell urement (mass/volume)Ordered By: Sebastian Bullard on 07-03-2023 Calcium [Mass/Vol] 8.8 mg/dL 8.5-10.1 [facility] Serum or plasma creatinine m easurement (mass/volume)Ordered By: Sebastian Bullard on 07-03-2023 Creatinine [Mass/Vol] 0.81 mg/dL 0.55-1.02 [facility] Comment on above: The validity of the calculated GFR & GFRAA in patients over 70 years has not been determined. Clinical correlation is essential. Serum or plasma urea nitroge n measurement (mass/volume)Ordered By: Sebastian Bullard on 07-03-2023 Urea nitrogen [Mass/Vol] 16 mg/dL 7-18 [facility] Thin prep Papanicolaou smear with manual screeningOrdered By: Sebastian Bullard on 07-03-2023 Thin prep Papanicolaou smear with manual screening 3.6 g/dL 3.2-5.0 [facility] Thin prep Papanicolaou smear with manual screening 20 U/L 15-37 [facility] Thin prep Papanicolaou smear with manual screening 7 5-15 [facility] Absolute lymphocyte countOrd ered By: Dr. Bullard on 04-04-2022 Lymphocytes Auto (Unsp spec) [#/Vol] 2.13 10*3/uL 0.83-4.51 [facility] Basophil percentageOrdered B y: Dr. Bullard on 04-04-2022 Basophils/100 WBC (Bld) 0.8 % 0-1 [facility] Bilirubin [Mass/Vol] 0.40 mg/dL 0.20-1.00 [facility] Comment on above: For patients on eltr ombopag therapy, use of Dimension [place] TBIL is not recommended. Chloride [Moles/Vol] 111 mmol/L 98-107 [facility] Eosinophils/100 WBC (Bld) 0.9 % 0-5 [facility] Glucose [Mass/Vol] 81 mg/dL 74-106 [facility] Neutrophils (Bld) [#/Vol] 4.5 10*3/uL 2.0-7.7 [facility] Neutrophils/100 WBC (Bld) 60.6 % 47-70 [facility] Potassium [Moles/Vol] 4.0 mmol/L 3.5-5.1 [facility] Protein [Mass/Vol] 6.7 g/dL 6.4-8.2 [facility] Sodium [Moles/Vol] 145 mmol/L 136-145 [facility] WBC (Bld) [#/Vol] 7.5 10*3/uL 4.4-11.0 [facility] Blood erythrocytes count (nu mber/volume)Ordered By: Dr. Bullard on 04-04-2022 RBC (Bld) [#/Vol] 4.35 10*6/uL 4.2-5.4 [facility] Blood hemoglobin measurement (mass/volume)Ordered By: Dr. Bullard on 04-04-2022 Hemoglobin (Bld) [Mass/Vol] 13.0 g/dL 12.0-15.0 [facility] Blood lymphocytes/100 leukoc ytesOrdered By: Dr. Bullard on 04-04-2022 Lymphocytes/100 WBC (Bld) 28.6 % 19-41 [facility] Blood monocytes/100 leukocyt esOrdered By: Dr. Bullard on 04-04-2022 Monocytes/100 WBC (Bld) 8.8 % 0-10 [facility] Blood platelet mean volumeOr dered By: Dr. Bullard on 04-04-2022 Platelet mean volume (Bld) [Entitic vol] 11.6 fL 6.2-12.0 [facility] Determination of erythrocyte mean corpuscular volume (MCV)Ordered By: Dr. Bullard on 04-04-2022 MCV (RBC) [Entitic vol] 94.3 fL 81-99 [facility] Erythrocyte sedimentation ra teOrdered By: Dr. Bullard on 04-04-2022 ESR (Bld) [Velocity] 7 mm/h 0-30 [facility] Hematocrit Auto (Bld) [Volum e fraction]Ordered By: Dr. Bullard on 04-04-2022 Hematocrit (Bld) [Volume fraction] 41.0 % 37-47 [facility] - Chemistry and C hemistry - challengeOrdered By: Dr. Bullard on 04-04-2022 ALP [Catalytic activity/Vol] 90 U/L 45-117 [facility] ALT [Catalytic activity/Vol] 28 U/L 13-56 [facility] CK [Catalytic activity/Vol] 89 U/L 26-192 [facility] CO2 [Moles/Vol] 28.0 mmol/L 21.0-32.0 [facility] Globulin (S) [Mass/Vol] 3.1 g/dL 2.2-4.2 [facility] Urea nitrogen/Creatinine [Mass ratio] 22.6 mg/mg 10-20 [facility] - Drug toxicology Ordered By: Dr. Bullard on 04-04-2022 Amphetamines Ql (U) Positive <1000 ng/mL [facility] Benzodiazepines Ql (U) Positive < 200 ng/mL [facility] Cannabinoids Screen Ql (U) Positive < 50 ng/mL [facility] Cocaine Ql (U) Negative < 300 ng/mL [facility] Opiates Ql (U) Positive < 300 ng/mL [facility] - Hematology and Cell countsOrdered By: Dr. Bullard on 04-04-2022 Erythrocyte distribution width (RBC) [Entitic vol] 43.8 fL 35.1-43.9 [facility] Erythrocyte distribution width (RBC) [Ratio] 12.6 % 11.6-14.6 [facility] Immature granulocytes/100 WBC (Bld) 0.300 % 0.0-0.9 [facility] Comment on above: IG% - Immature Granu locytes (promyelocytes, myelocytes and metamyelocytes) > 1% indicates that a LEFT SHIFT is Present. MCH (RBC) [Entitic mass] 29.9 pg 27.0-32.0 [facility] Nucleated RBC/100 WBC (Bld) [Ratio] 0 % 0-5 [facility] MCHC Auto (RBC) [Mass/Vol]Or dered By: Dr. Bullard on 04-04-2022 MCHC (RBC) [Mass/Vol] 31.7 g/dL 32-36 [facility] No Panel InformationOrdered By: Dr. Bullard on 04-04-2022 Estimated GFR (MDRD) Amer 117 mL/min >60 [facility] Comment on above: GFR Calc Estimated GFR (MDRD) Non-Af Amer 97 mL/min >60 [facility] Comment on above: Non- GFR Calc MDMA (Ecstasy) Screen Positive < 500 ng/mL [facility] Thyroid Stimulating Hormone (TSH) 1.75 uIU/mL 0.358-3.74 [facility] Urine Barbiturates Screen Positive < 200 ng/mL [facility] Urine Drug Screen Comment [facility] Comment on above: CONFIRMATORY TESTING FOR ALL POSITIVE URINE DRUG SCREENRESULTS WILL ONLY BE SENT OUT UPON PHYSICIAN ORDER. VISTA Urine Drug Screen methods provide only preliminaryanalytical test results. A more specific alternate chemicalmethod must be used in order to obtain a confirmedanalytical result. Gas chromatography/mass spectrometery(GC/MS) is the preferred confirmatory method. Clinicalconsideration and professional judgement should be appliedto any drug of abuse test result, particularly whenpreliminary positive results are used. URINE TCA TESTING MUST BE ORDERED SEPARATELY. USE TESTMNEMONIC: [facility] Urine Methadone Screen Negative < 300 ng/mL [facility] Urine Oxycodone Screen Positive <100 ng/mL [facility] Platelets bldOrdered By: Dr. Bullard on 04-04-2022 Platelets (Bld) [#/Vol] 300 10*3/uL 150-450 [facility] Serum or plasma C reactive p rotein measurement (mass/volume)Ordered By: Dr. Bullard on 04-04-2022 CRP [Mass/Vol] mg/L 0.0-3.0 [facility] Comment on above: C-Reactive Protein ( CRP) provides useful information for thediagnosis, therapy and monitoring of inflammatory processesand associated diseases. For the evaluation of Relative Riskfor Cardiovascular Disease, a High Sensitivity CRP (HSCRP)should be ordered. Serum or plasma albumin mitchell urement (mass/volume)Ordered By: Dr. Bullard on 04-04-2022 Albumin [Mass/Vol] 3.6 g/dL 3.2-5.0 [facility] Serum or plasma albumin/glob ulin mass ratioOrdered By: Dr. Bullard on 04-04-2022 Albumin/Globulin [Mass ratio] 1.2 {ratio} 0.9-2.4 [facility] Serum or plasma calcium mitchell urement (mass/volume)Ordered By: Dr. Bullard on 04-04-2022 Calcium [Mass/Vol] 8.7 mg/dL 8.5-10.1 [facility] Serum or plasma creatinine m easurement (mass/volume)Ordered By: Dr. Bullard on 04-04-2022 Creatinine [Mass/Vol] 0.66 mg/dL 0.55-1.02 [facility] Comment on above: The validity of the calculated GFR & GFRAA in patients over 70 years has not been determined. Clinical correlation is essential. Serum or plasma urea nitroge n measurement (mass/volume)Ordered By: Dr. Bullard on 04-04-2022 Urea nitrogen [Mass/Vol] 15 mg/dL 7-18 [facility] Serum rheumatoid factor dete ctionOrdered By: Dr. Bullard on 04-04-2022 Rheumatoid factor Ql (S) 92.0 IU/mL <15 [facility] Thin prep Papanicolaou smear with manual screeningOrdered By: Dr. Bullard on 04-04-2022 Thin prep Papanicolaou smear with manual screening 13 U/L 15-37 [facility] Thin prep Papanicolaou smear with manual screening 6 5-15 [facility] Urine phencyclidine (PCP) de tectionOrdered By: Dr. Bullard on 04-04-2022 Phencyclidine Ql (U) Negative < 25 ng/mL [facility] Beta-2 Glycoprotein 1 Abson 02-14-2018 Beta-2 Glycoprotein 1, IgG < 9.4 Normal <15.0 (Negative) [facility] Comment on above: Performed By: #### D NADS, HEPCABS, CCPAB, CBCDIF, HEPF, C-3, C-4, CH50, CARDABS, G6PD, [id number] ####Unless otherwise noted, all testing performed by [facility] [place], [place] [phone]: [id number] Director: Blanco Gagnon M.D. Protein mass conc g/dL Normal <15.0 (Negative) [facility] Comment on above: Result Comment: Test Performed by:[address] [address] Performed By: #### D NADS, HEPCABS, CCPAB, CBCDIF, HEPF, C-3, C-4, CH50, CARDABS, G6PD, [id number] ####Unless otherwise noted, all testing performed by [address] [id number]: [id number] Director: Blanco Gagnon M.D. C-3 Complementon 02-14-2018 C-3 Complement 124.4 mg/dL Normal 73.0-183.0 [facility] Comment on above: Result Comment: Test Performed by [facility] [place] [address] Performed By: #### D NADS, HEPCABS, CCPAB, CBCDIF, HEPF, C-3, C-4, CH50, CARDABS, G6PD, [id number] ####Unless otherwise noted, all testing performed by [address] [id number]: [id number] Director: Blanco Gagnon M.D. C-4 Complementon 02-14-2018 C-4 Complement 16.1 mg/dL Normal 16.0-47.0 [facility] Comment on above: Result Comment: [place] [address] Performed By: #### D NADS, HEPCABS, CCPAB, CBCDIF, HEPF, C-3, C-4, CH50, CARDABS, G6PD, [id number] ####Unless otherwise noted, all testing performed by [address], [place] [phone]: [id number] Director: Blanco Gagnon M.D. CBC with Diffon 02-14-2018 Basophils Auto #/vol (Bld) 0.1 K/mcL Normal 0-0.2 [facility] Comment on above: Performed By: #### D NADS, HEPCABS, CCPAB, CBCDIF, HEPF, C-3, C-4, CH50, CARDABS, G6PD, [id number] ####Unless otherwise noted, all testing performed by [address]CLIA: [id number] Director: Blanco Gagnon M.D. Basophils/100 WBC Auto (Bld) 0.9 % Normal [facility] Comment on above: Performed By: #### D NADS, HEPCABS, CCPAB, CBCDIF, HEPF, C-3, C-4, CH50, CARDABS, G6PD, [id number] ####Unless otherwise noted, all testing performed by [address] [phone]: [id number] Director: Blanco Gagnon M.D. Eosinophils Auto #/vol (Bld) 0.1 K/mcL Normal 0-0.5 [facility] Comment on above: Performed By: #### D NADS, HEPCABS, CCPAB, CBCDIF, HEPF, C-3, C-4, CH50, CARDABS, G6PD, [id number] ####Unless otherwise noted, all testing performed by [address] [phone]: [id number] Director: Blanco Gagnon M.D. Eosinophils/100 WBC Auto (Bld) 1.7 % Normal [facility] Comment on above: Performed By: #### D NADS, HEPCABS, CCPAB, CBCDIF, HEPF, C-3, C-4, CH50, CARDABS, G6PD, [id number] ####Unless otherwise noted, all testing performed by [address] [phone]: [id number] Director: Blanco Gagnon M.D. Erythrocyte distribution width Auto Ratio (RBC) 13.9 % Normal 10.0-14.4 [facility] Comment on above: Performed By: #### D NADS, HEPCABS, CCPAB, CBCDIF, HEPF, C-3, C-4, CH50, CARDABS, G6PD, [id number] ####Unless otherwise noted, all testing performed by [place] [id number]: [id number] Director: Blanco Gagnon M.D. Hematocrit Auto Volume Fraction (Bld) 41.9 % Normal 34.4-44.8 [facility] Comment on above: Performed By: #### D NADS, HEPCABS, CCPAB, CBCDIF, HEPF, C-3, C-4, CH50, CARDABS, G6PD, [id number] ####Unless otherwise noted, all testing performed by [address] [phone]: [id number] Director: Blanco Gagnon M.D. Hemoglobin mass conc (Bld) 14.2 g/dL Normal 11.6-15.4 [facility] Comment on above: Performed By: #### D NADS, HEPCABS, CCPAB, CBCDIF, HEPF, C-3, C-4, CH50, CARDABS, G6PD, [id number] ####Unless otherwise noted, all testing performed by [address] [phone]: [id number] Director: Blanco Gagnon M.D. Lymphocytes Auto #/vol (Bld) 2.9 K/mcL Normal 1.0-3.7 [facility] Comment on above: Performed By: #### D NADS, HEPCABS, CCPAB, CBCDIF, HEPF, C-3, C-4, CH50, CARDABS, G6PD, [id number] ####Unless otherwise noted, all testing performed by [address] [phone]: [id number] Director: Blanco Gagnon M.D. Lymphocytes/100 WBC Auto (Bld) 33.3 % Normal [facility] Comment on above: Performed By: #### D NADS, HEPCABS, CCPAB, CBCDIF, HEPF, C-3, C-4, CH50, CARDABS, G6PD, [id number] ####Unless otherwise noted, all testing performed by [address] [phone]: [id number] Director: Blanco Gagnon M.D. MCH Auto Entitic mass (RBC) 31.2 pg Normal 27.9-33.9 [facility] Comment on above: Performed By: #### D NADS, HEPCABS, CCPAB, CBCDIF, HEPF, C-3, C-4, CH50, CARDABS, G6PD, [id number] ####Unless otherwise noted, all testing performed by [address] [phone]: [id number] Director: Blanco Gagnon M.D. MCHC Auto mass conc (RBC) 34.0 g/dL Normal 33.1-35.1 [facility] Comment on above: Performed By: #### D NADS, HEPCABS, CCPAB, CBCDIF, HEPF, C-3, C-4, CH50, CARDABS, G6PD, [id number] ####Unless otherwise noted, all testing performed by [address] [phone]: [id number] Director: Blanco Gagnon M.D. MCV Auto Entitic volume (RBC) 92.0 fL Normal 82.6-98.9 [facility] Comment on above: Performed By: #### D NADS, HEPCABS, CCPAB, CBCDIF, HEPF, C-3, C-4, CH50, CARDABS, G6PD, [id number] ####Unless otherwise noted, all testing performed by [address] [phone]: [id number] Director: Blanco Gagnon M.D. Monocytes Auto #/vol (Bld) 0.7 K/mcL High 0.1-0.6 [facility] Comment on above: Performed By: #### D NADS, HEPCABS, CCPAB, CBCDIF, HEPF, C-3, C-4, CH50, CARDABS, G6PD, [id number] ####Unless otherwise noted, all testing performed by [address] [phone]: [id number] Director: Blanco Gagnon M.D. Monocytes/100 WBC Auto (Bld) 7.8 % Normal [facility] Comment on above: Performed By: #### D NADS, HEPCABS, CCPAB, CBCDIF, HEPF, C-3, C-4, CH50, CARDABS, G6PD, [id number] ####Unless otherwise noted, all testing performed by [address] [phone]: [id number] Director: Blanco Gagnon M.D. Neutrophils Auto #/vol (Bld) 4.9 K/mcL Normal 1.2-6.9 [facility] Comment on above: Performed By: #### D NADS, HEPCABS, CCPAB, CBCDIF, HEPF, C-3, C-4, CH50, CARDABS, G6PD, [id number] ####Unless otherwise noted, all testing performed by [address] [phone]: [id number] Director: Blanco Gagnon M.D. Platelet mean volume Auto Entitic volume (Bld) 9.5 fL Normal 7.0-10.6 [facility] Comment on above: Performed By: #### D NADS, HEPCABS, CCPAB, CBCDIF, HEPF, C-3, C-4, CH50, CARDABS, G6PD, [id number] ####Unless otherwise noted, all testing performed by [address] [id number]: [id number] Director: Blanco Gagnon M.D. Platelets Auto #/vol (Bld) 262 K/mcL Normal 162-402 [facility] Comment on above: Performed By: #### D NADS, HEPCABS, CCPAB, CBCDIF, HEPF, C-3, C-4, CH50, CARDABS, G6PD, [id number] ####Unless otherwise noted, all testing performed by [address] [phone]: [id number] Director: Blanco Gagnon M.D. RBC Auto #/vol (Bld) 4.55 M/mcL Normal 3.7-5.0 [facility] Comment on above: Performed By: #### D NADS, HEPCABS, CCPAB, CBCDIF, HEPF, C-3, C-4, CH50, CARDABS, G6PD, [id number] ####Unless otherwise noted, all testing performed by [address] [phone]: [id number] Director: Blanco Gagnon M.D. Segmented Neut % 56.3 % Normal [facility] Comment on above: Performed By: #### D NADS, HEPCABS, CCPAB, CBCDIF, HEPF, C-3, C-4, CH50, CARDABS, G6PD, [id number] ####Unless otherwise noted, all testing performed by [address] [phone]: [id number] Director: Blanco Gagnon M.D. WBC Auto #/vol (Bld) 8.7 K/mcL Normal 3.4-10.6 [facility] Comment on above: Performed By: #### D NADS, HEPCABS, CCPAB, CBCDIF, HEPF, C-3, C-4, CH50, CARDABS, G6PD, [id number] ####Unless otherwise noted, all testing performed by [address] [id number]: [id number] Director: Blanco Gagnon M.D. CCP Antibodieson 02-14-2018 CCP Antibodies 143.5 Unit High 0.0-20.0 [facility] [facility] Comment on above: Result Comment: Refe rence Ranges:<20Units Akeeceai31-52Hernz Weakly Kxzrxtqu46-90Gxbqe Moderative Positive>=60Units Strong PositiveTest Performed by [facility] [place] [address] Performed By: #### D NADS, HEPCABS, CCPAB, CBCDIF, HEPF, C-3, C-4, CH50, CARDABS, G6PD, [id number] ####Unless otherwise noted, all testing performed by [address] [id number]: [id number] Director: Blanco Gagnon M.D. CH50 (Complement Total)on CH50 (Complement Total) 57 U/mL Normal 30 - 75 [facility] Comment on above: Result Comment: Test Performed by:[place] [address] Performed By: #### D NADS, HEPCABS, CCPAB, CBCDIF, HEPF, C-3, C-4, CH50, CARDABS, G6PD, [id number] ####Unless otherwise noted, all testing performed by [address] [id number]: [id number] Director: Blanco Gagnon M.D. Cardiolipin Autoanitbodieson 02-14-2018 Cardiolipin IgG < 9 Normal 0-15 [facility] Comment on above: Performed By: #### D NADS, HEPCABS, CCPAB, CBCDIF, HEPF, C-3, C-4, CH50, CARDABS, G6PD, [id number] ####Unless otherwise noted, all testing performed by [address] [id number]: [id number] Director: Blanco Gagnon M.D. Cardiolipin, IgA < 9 Normal 0-15 [facility] Comment on above: Result Comment: Test performed by:[address] [id number] [place] [address] Performed By: #### D NADS, HEPCABS, CCPAB, CBCDIF, HEPF, C-3, C-4, CH50, CARDABS, G6PD, [id number] ####Unless otherwise noted, all testing performed by [address] [id number]: [id number] Director: Blanco Gagnon M.D. Cardiolipin, IgM < 9 Normal 0-15 [facility] Comment on above: Performed By: #### D NADS, HEPCABS, CCPAB, CBCDIF, HEPF, C-3, C-4, CH50, CARDABS, G6PD, [id number] ####Unless otherwise noted, all testing performed by [address] [phone]: [id number] Director: Blanco Gagnon M.D. DNA Double Stranded(dsDNA)Ab on 02-14-2018 DNA Double Stranded(dsDNA)Ab < 10 Normal <10 [facility] Comment on above: Result Comment: [place] [address] Performed By: #### D NADS, HEPCABS, CCPAB, CBCDIF, HEPF, C-3, C-4, CH50, CARDABS, G6PD, [id number] ####Unless otherwise noted, all testing performed by [address] [phone]: [id number] Director: Blanco Gagnon M.D. JOSEP Antibodieson 02-14-2018 JOSEP Antibodies 2 Units Normal 0-19 [facility] Comment on above: Result Comment: THE JOSEP Screen tests for SSA,SSB,SM,SM/CONTROL CLERK AUDITING,SCL-70, AND JO1.Reference Ranges:<20 Units = Bmnksufv25-23 Units = Borderline>25 Units = [place] [address] Performed By: #### D NADS, HEPCABS, CCPAB, CBCDIF, HEPF, C-3, C-4, CH50, CARDABS, G6PD, [id number] ####Unless otherwise noted, all testing performed by [address] [phone]: [id number] Director: Blanco Gagnon M.D. Gluc 6 Phos Dehydr.on 2017 Gluc 6 Phos Dehydr. 8.9 U/g Hb Normal 8.8 - 13.4 [facility] Comment on above: Result Comment: ---- ADDITIONAL INFORMATION This test was developed and its performance characteristicsdetermined by [facility] in a manner consistent withCLIA requirements. This test has not been cleared orapproved by the U.S. Food and Drug Administration.Test Performed by:[place] [address] Performed By: #### D NADS, HEPCABS, CCPAB, CBCDIF, HEPF, C-3, C-4, CH50, CARDABS, G6PD, [id number] ####Unless otherwise noted, all testing performed by [address] [phone]: [id number] Director: Blanco Gagnon M.D. HAND BILATERAL, 2 VIEWSon HAND BILATERAL, 2 VIEWS Final ReportAccession No: [id number] Performed: Feb 14 2018 4:14PMExamination: HAND BILATERAL, 2 VIEWSBILATERAL COMPARATIVE HAND STUDY:COMPARISON: None.REASON FOR STUDY: Bilateral hand pain.REPORT:Comparative views were done of both hands. There is a metallic ringdensity atthe base of the fourth digit. Mild osteopenic changes are notedthroughout. Nofractures, dislocations or bony lesions are noted. The carpal rows showgoodpositioning. The distal forearms are unremarkable. No gross degenerativechanges are noted.IMPRESSION:1. Nonacute plain films of the right or left hands.2. Mild periarticular osteopenic changes are noted throughout. No advanceddegenerative changes are noted.Interpreting Physician: BRAYDON AUSTIN D.O.Trans: istumb : cc: Normal [facility] Hepatic Function Panelon Albumin mass conc 3.9 g/dL Normal 3.2-5.2 [facility] Comment on above: Performed By: #### D NADS, HEPCABS, CCPAB, CBCDIF, HEPF, C-3, C-4, CH50, CARDABS, G6PD, [id number] ####Unless otherwise noted, all testing performed by [address] [id number]: [id number] Director: Blanco Gagnon M.D. ALP enzyme act/vol 142 U/L Normal 40-150 [facility] Comment on above: Performed By: #### D NADS, HEPCABS, CCPAB, CBCDIF, HEPF, C-3, C-4, CH50, CARDABS, G6PD, [id number] ####Unless otherwise noted, all testing performed by [address] [phone]: [id number] Director: Blanco Gagnon M.D. ALT enzyme act/vol 16 U/L Normal 14-65 [facility] Comment on above: Result Comment: This test result might be falsely depressed or falsely elevated onsamples drawn from patients taking Sulfasalazine and Sulfapyridine.Venipuncture should occur prior to taking either of these drugs. Performed By: #### D NADS, HEPCABS, CCPAB, CBCDIF, HEPF, C-3, C-4, CH50, CARDABS, G6PD, [id number] ####Unless otherwise noted, all testing performed by [address] [phone]: [id number] Director: Blanco Gagnon M.D. AST enzyme act/vol 15 U/L Normal 0-45 [facility] Comment on above: Result Comment: This test result might be falsely depressed or falsely elevated onsamples drawn from patients taking Sulfasalazine and Sulfapyridine.Venipuncture should occur prior to taking either of these drugs. Performed By: #### D NADS, HEPCABS, CCPAB, CBCDIF, HEPF, C-3, C-4, CH50, CARDABS, G6PD, [id number] ####Unless otherwise noted, all testing performed by [address] [id number]: [id number] Director: Blanco Gagnon M.D. Bilirubin mass conc 0.3 mg/dL Normal 0.3-1.2 [facility] Comment on above: Performed By: #### D NADS, HEPCABS, CCPAB, CBCDIF, HEPF, C-3, C-4, CH50, CARDABS, G6PD, [id number] ####Unless otherwise noted, all testing performed by [address] [phone]: [id number] Director: Blanco Gagnon M.D. Bilirubin.direct mass conc mg/dL Normal 0.0-0.4 [facility] Comment on above: Performed By: #### D NADS, HEPCABS, CCPAB, CBCDIF, HEPF, C-3, C-4, CH50, CARDABS, G6PD, [id number] ####Unless otherwise noted, all testing performed by [place] [phone]: [id number] Director: Blanco Gagnon M.D. Protein mass conc 7.7 g/dL Normal 6.0-8.0 [facility] Comment on above: Performed By: #### D NADS, HEPCABS, CCPAB, CBCDIF, HEPF, C-3, C-4, CH50, CARDABS, G6PD, [id number] ####Unless otherwise noted, all testing performed by [address] [phone]: [id number] Director: Blanco Gagnon M.D. Hepatitis C Antibodyon 02-14 Hepatitis C Antibody Negative Normal Negative [facility] Comment on above: Result Comment: Test performed using Garrison LEÓN immunoassay systemTest Performed by [facility] [place] [address] Performed By: #### D NADS, HEPCABS, CCPAB, CBCDIF, HEPF, C-3, C-4, CH50, CARDABS, G6PD, [id number] ####Unless otherwise noted, all testing performed by [place] [phone]: [id number] Director: Blanco Gagnon M.D. Immunglobulins (igG,IgM,IgA) on 02-14-2018 IgA mass conc 271 mg/dL Normal 84-381 [facility] Comment on above: Result Comment: Test Performed by [facility] [place] [address] Performed By: #### D NADS, HEPCABS, CCPAB, CBCDIF, HEPF, C-3, C-4, CH50, CARDABS, G6PD, [id number] ####Unless otherwise noted, all testing performed by [address] [id number]: [id number] Director: Blanco Gagnon M.D. IgG mass conc 903 mg/dL Normal 541-1,694 [facility] Comment on above: Performed By: #### D NADS, HEPCABS, CCPAB, CBCDIF, HEPF, C-3, C-4, CH50, CARDABS, G6PD, [id number] ####Unless otherwise noted, all testing performed by [place] [phone]: [id number] Director: Blanco Gagnon M.D. IgM mass conc 185 mg/dL Normal 43-238 [facility] Comment on above: Performed By: #### D NADS, HEPCABS, CCPAB, CBCDIF, HEPF, C-3, C-4, CH50, CARDABS, G6PD, [id number] ####Unless otherwise noted, all testing performed by [place] [phone]: [id number] Director: Blanco Gagnon M.D. Rheumatoid Factoron 02-15-20 18 Rheumatoid Factor Positive Abnormal Negative [facility] Comment on above: Performed By: #### D NADS, HEPCABS, CCPAB, CBCDIF, HEPF, C-3, C-4, CH50, CARDABS, G6PD, [id number] ####Unless otherwise noted, all testing performed by [address] [phone]: [id number] Director: Blanco Gagnon M.D. Rheumatoid Factor Titer >1:32 Normal [facility] Comment on above: Performed By: #### D NADS, HEPCABS, CCPAB, CBCDIF, HEPF, C-3, C-4, CH50, CARDABS, G6PD, [id number] ####Unless otherwise noted, all testing performed by [place] [address] [address], [place] [phone]: [id number] Director: Blanco Gagnon M.D. SPINE CERVICAL (2 or 3 VIEWS )on 02-14-2018 SPINE CERVICAL (2 or 3 VIEWS) Final ReportAccession No: [id number] Performed: Feb 14 2018 4:14PMExamination: SPINE CERVICAL (2 or 3 VIEWS)TWO-VIEW CERVICAL SPINECOMPARISON: None.REASON FOR STUDY: Neck and bilateral hand pain.REPORT: Frontal and lateral films are done of the cervical spine. Bonedensityis normal. No compression fracture or subluxation is noted. Nomalalignmentsare noted. Slight to mild facet hypertrophic changes are notedthroughout. Thedisc spaces are intact, there may be some slight narrowing at the level ofC5-C6. Prevertebral area and cervicothoracic junction is unremarkable.Thereare some mildly prominent transverse processes noted incidentally at C7.Thelung apices are unremarkable.IMPRESSION:1. Nonacute two-view cervical spine.2. Slight chronic and degenerative changes as noted above.Interpreting Physician: BRAYDON AUSTIN D.O.Trans: mad : cc: Normal [facility] Acetamnphn Lvlon 09-26-2016 Acetaminophen mass conc <10 Normal 0-15 [facility] Comment on above: Result Comment: Tyle nol - Therapeutic 10-30 ug/ml Toxic 4 hr. Post ingestion >150 ug/ml Toxic 8hr Post ingestion >75 ug/ml Toxic 12hr. Post ingestion >40 ug/ml Performed By: #### 2 [id number] ####VALENTINO [address] [place] [address] Ethanolon 09-26-2016 Ethanol Lvl <5 Normal 0-15 [facility] Comment on above: Result Comment: SAMP LES WITH CONCENTRATIONS <15 MG/DL SHOULD BEINTERPRETED NEGATIVE. FOR MEDICAL USE ONLY Performed By: #### 2 [id number] ####VALENTINO A[address]pe[address]ryc[address] [place] [address] Salicylateon 09-26-2016 Salicylate Lvl <4 Low 15-30 [facility] Comment on above: Performed By: #### 2 186875 ####VALENTINO AveryKsbPcsg0292 [place] [address] U Drug Screenon 09-26-2016 U Amph Scr Positive Normal [facility] Comment on above: Result Comment: Resu lts for medical use only. Confirmation of positive results will be done when requested. Specimens are kept for one week. Performed By: #### 2 [id number] ####VALENTINO IruCqmc[address] [place] [address] U Britt Scr Positive Normal [facility] Comment on above: Performed By: #### 2 [id number] ####VALENTINO HpeGvib4404 [place] [address] U Benzodia Scr Positive Normal [facility] Comment on above: Performed By: #### 2 486278 ####VALENTINO RicEpwk5851 [place] [address] U Cannab Scr Negative Normal [facility] Comment on above: Performed By: #### 2 556260 ####VALENTINO XxxDvml2912 [place] [address] U Cocaine Scr Negative Normal [facility] Comment on above: Performed By: #### 2 [id number] ####VALENTINO FfuLupe[address]2 [place] [address] U Opiate Scr Negative Normal [facility] Comment on above: Performed By: #### 2 [id number] ####VALENTINO PknOegq[address] [place] [address] U PCP Scr Negative Normal [facility] Comment on above: Performed By: #### 2 [id number] ####VALENTINO AveryQjlBpwl0640 [place] [address] UA Completeon 09-26-2016 UA Blood Negative Normal Negative [facility] Comment on above: Performed By: #### 8 [id number] ####VALENTINO Urinalysis Automated Vm[address]zylxme[address]273 [place] [address] UA Clarity SltCloudy Abnormal Clear [facility] Comment on above: Performed By: #### 8 [id number] ####AVLENTINO Urinalysis Automated Vbpzvopiuo3213 [place] [address] UA Leuk Est Negative Normal Negative [facility] Comment on above: Performed By: #### 8 [id number] ####VALENTINO Urinalysis Automated [address] [place] [address] UA Mucous Trace Abnormal Trace [facility] Comment on above: Performed By: #### 8 [id number] ####VALENTINO Urinalysis Automated [address] [place], [place] [address] UA Nitrite Negative Normal Negative [facility] Comment on above: Performed By: #### 8 [id number] ####VALENTINO Urinalysis Automated [address] [place] [address] UA pH 5.0 Normal 4.6-8.0 [facility] Comment on above: Performed By: #### 8 [id number] ####VALENTINO Urinalysis Automated [address] [place] [address] UA Protein Negative Normal Negative [facility] Comment on above: Performed By: #### 8 [id number] ####VALENTINO Urinalysis Automated Eeahxlgehi[address] [place], [place] [address] UA Spec Grav 1.026 Normal 1.003-1.030 [facility] Comment on above: Performed By: #### 8 [id number] ####VALENTINO Urinalysis Automated [address] [place] [address] UA Squam Epithelial 0-5 Normal 0-5 [facility] Comment on above: Performed By: #### 8 [id number] ####VALENTINO Urinalysis Automated [address]cm[address]qt[address] [place] [id number] UA Urobilinogen 2.0 mg/dL Abnormal [facility] Comment on above: Performed By: #### 8 [id number] ####VALENTINO Urinalysis Automated [address]rphutat[address] [place], [place] [address] UA WBC 5-10 Abnormal 0-5 [facility] Comment on above: Performed By: #### 8 [id number] ####VALENTINO Urinalysis Automated Rpzmlgvicf5467 [place] [address] Urine, color Yellow Normal Yellow [facility] Comment on above: Performed By: #### 8 [id number] ####VALENTINO Urinalysis Automated Venhseordh8439 [place] [address] Urine, erythrocytes 0-3 Normal 0-3 [facility] Comment on above: Performed By: #### 8 [id number] ####VALENTINO Urinalysis Automated Uctyiyaocp2383 [place] [address] Urine, glucose Negative Normal Negative [facility] Comment on above: Performed By: #### 8 [id number] ####VALENTINO Urinalysis Automated Mlchvelduo1398 [place] [address] Urine, ketones presence Trace Normal [facility] Comment on above: Performed By: #### 8 [id number] ####VALENTINO Urinalysis Automated Bqaekiryql2444 [place] [address] Urine, urobilinogen Negative Normal Negative [facility] Comment on above: Performed By: #### 8 [id number] ####VALENTINO Urinalysis Automated Cqnrnibmwk7026 [place] [address] No Panel Information [facility] Encounters Encounter Date Encounter Type Care Provider Facility Start: 12-10-2024 End: 12-10-[address] Sebastian Bullard DO Work Phone: -Laboratory Specimen Start: 12-10-2024 End: 12-10-[address] Sebastian Bullard DO -Laboratory Specimen Work Phone: Start: 12-10-2024 End: 12-10-2024 ambulatory Sebastian Bullard Facility:[facility] Start: 07-18-2024 End: 07-18-[address] Sebastian Bullard DO Work Phone: [facility] Work Phone: Start: 07-18-2024 End: 07-18-[address] Sebastian Bullard DO -Laboratory, Specimen Work Phone: Start: 07-18-2024 End: 07-18-2024 ambulatory Sebastian Juan Miguel Facility:[facility] Start: 03-06-2024 ambulatory Sebastian Juan Miguel Facility: [facility] Start: 03-05-2024 End: 03-05-2024 ambulatory Sebastian [facility] Facility:[facility] Start: 07-03-2023 End: 07-03-2023 ambulatory [facility] Work Phone: Start: 07-03-2023 End: 07-03-2023 Patient encounter procedure [facility], [facility] Start: 04-04-2022 End: 04-04-2022 ambulatory [facility] Work Phone: Start: 04-04-2022 End: 04-04-2022 Patient encounter procedure [facility], [facility] Start: 01-17-2022 End: 01-17-2022 ambulatory MEGHA VARGAS II Facility:[facility] Start: 01-17-2022 End: 01-17-2022 Patient encounter procedure Megha Vargas OD Work Phone: Optometry Comment on above: Long-term use of Lacie quenil (Primary Dx); Keratoconjunctivitis sicca of both eyes not specified as Sjogren's; Hyperopia of both eyes; Regular astigmatism, bilateral; Presbyopia Start: 06-02-2020 End: 06-02-2020 Orders Only Amy Short Work Phone: [facility] Start: 02-15-2018 Patient encounter procedure AKANKSHA KAY [facility] Start: 02-14-2018 Patient encounter procedure Akanksha Kay Facility:[place] Start: 02-14-2018 End: 02-14-2018 Patient encounter procedure SEBASTIAN BULLARD [facility] Start: 09-26-2016 End: 09-26-2016 Emergency department patient visit Sebastian Bullard Facility:[facility] Procedures Date Procedure Procedure Detail Performing Clinician Start: 12-09-2024 Methadone measuremen t, urine Dr. Sebastian Bullard DO Work Phone: Start: 07-18-2024 Methadone measuremen t, urine Dr. Sebastian Bullard DO Work Phone: Start: 07-18-2024 Oxycodone measurement D guera Bullard DO Work Phone: Comment on above: *Additional results available. Contact laboratory/see report* Start: 01-17-2022 End: 01-17-2022 Computerized ophthalmic imaging retina Megha Vargas OD Work Phone: Start: 06-07-2011 Mammography Megha hale II, OD Work Phone: Plan of Treatment Date Care Activity Detail Author Start: 11-17-2021 Influenza vaccination INFLUENZA (#1) [facility] Start: 03-19-2021 DEPRESSION ASSESSMENT DEPRESSION ASS ESSMENT [facility] Start: 08-08-2020 Tetanus vaccination Tetanus: Every 1 0yrs [facility] Start: 11-18-2019 Influenza vaccinatio n given Sequential Influenza Vaccine (#1) [facility] Start: 06-06-2016 HPV TESTING HPV TESTING [facility] Start: 06-06-2016 PAP TESTING PAP TESTING [facility] Start: 02-20-2014 DIABETES SCREEN DIABETES SCREEN [facility] Start: 06-19-2013 LIPID SCREEN LIPID SCREEN [facility] Start: 2012 Administration of he rpes zoster vaccine Zoster Vaccines (1 of 2) [facility] Start: 2012 Screening for malign ant neoplasm of colon [facility] Start: 06-06-2012 Mammography MAMMOGRAM [facility] Start: 08-09-2010 Urine microalbumin profile DTAP,TDAP ,TD (1 - Tdap) [facility] Start: 06-19-2007 COLOGUARD (FIT-DNA) COLOGUARD (FIT-D NA) [facility] Start: 06-19-2007 Colonoscopy COLONOSCOPY [facility] Start: 06-19-2007 COLORECTAL CANCER SCREENING COLORECTAL CANCER SCREENING [facility] Start: 06-19-[address] COLONOGRAPHY [facility] Start: 06-19-2007 FECAL OCCULT BLOOD FECAL OCCULT BLOO D [facility] Start: 06-19-2007 SIGMOIDOSCOPY SIGMOIDOSCOPY [facility] Start: 1981 SHINGRIX VACCINE (1 of 2) SHINGRIX V ACCINE (1 of 2) [facility] Start: 1980 HEPATITIS C SCREENING HEPATITIS C SC REENING [facility] Start: 1980 HIV SCREENING HIV SCREENING [facility] Start: 1978 COVID-19 Vaccine (1 of 2) COVID-19 V accine (1 of 2) [facility] Start: 1977 HIV screening HIV Screening [facility] Start: 1974 Adolescent depressio n screening assessment Depression Screening (PHQ9) [facility] Start: 1968 PNEUMOCOCCAL (1 - PCV) PNEUMOCOCCAL (1 - PCV) [facility] Start: 1965 History and physical examination, annual for health maintenance Wellness Visit [facility] Start: 1962 COVID-19 VACCINE (#1) COVID-19 VACCI NE (#1) [facility] Start: 1962 Screening for malign ant neoplasm of cervix Pap Smear [facility] Start: 1962 Screening mammography Mammogram [facility] Immunizations Immunization Date Immunization Notes Care Provider Fa luis 08-08-2010 tetanus and diphther ia toxoids, adsorbed, preservative free, for adult use (2 Lf of tetanus toxoid and 2 Lf of diphtheria toxoid) Megha Vargas II, OD Work Phone: [facility] Work Phone: 01-13-2010 influenza virus vaccine, unspecified formulation Megha Vargas II, OD Work Phone: [facility] Payers Date Payer Category Payer Unknown [id number] 2024 Self-pay [id number] 2020 Unknown ANTHEM BLUE CROS S AND BLUE SHIELD ANTHEM MEDIBLUE HMO [id number] 2020-Present [phone] [address] [place] [address] HMO [id number] 2020 Unknown [id number] 2016 Medicare 2015 Medicaid MEDICAID [facility] MEDICAID [id number] 2015-Present [phone] [address] [place] [address] Medicaid [id number] 2015 Medicaid [id number] 2011 Medicare [id number] 2011 Medicare MEDICARE MEDICAR E PART A & B [id number] 2011-Present [place] [id number] 2011 Medicare [id number] 1962 Unknown [id number] 1962 Unknown [id number] Unknown [id number] Unknown [id number] Unknown [id number] Unknown [id number] Social History Date Type Detail Facility Start: 02-14-2018 End: 01-17-2022 Tobacco smoking status VTIS Current some day smoker [facility] Start: 02-14-2018 End: 01-17-2022 Cigarettes smoked current (pack per day) - Reported [facility] Start: 02-14-2018 End: 01-17-2022 Tobacco use and exposure Never used [facility] Start: 02-14-2018 Alcohol intake 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 alcohol (finding) [facility] Start: 1960 Sex Assigned At Not on file [facility] History of tobacco use Cigarette Smoker [facility] Start: 01-17-2022 Alcohol intake Current drinke r of alcohol (finding) [facility] Start: 09-30-2008 Alcohol Comment rare [facility] Start: 01-07-2022 End: 01-17-2022 Exposure to SARS-CoV-2 (event) Not sure [facility] Start: 09-15-2017 End: 09-15-2017 Tobacco smoking status NHIS Unknown if ever smoked [facility] Start: 1960 Sex Assigned At Female W [facility] Start: 09-15-2017 Tobacco smoking stat us NHIS Smokes tobacco daily (finding) [facility] Sex Female [facility] Progress note 01-17-2022 Note Date & Type Note Facility 01-17-2022 Note HNO ID: [id number] Author: Megha Vargas II, OD Service: ? Author Type: DESILVERIZER Type: Progress Notes Filed: 01/17/2022 3:47 PM Note Text: Assessment and Plan Z79.899 Long-term use of Plaquenil (primary encounter diagnosis) Comment: No ocular complications found secondary to use of Plaquenil. Continue regularly scheduled observation as instructed. Discussed need for early detection of ocular complications as they can continue to progress for a period of time even after medication is discontinued. H16.223 Keratoconjunctivitis sicca of both eyes not specified as Sjogren's Comment: Continue use of Tyrvaya nasal spray twice daily. Artificial tears as needed. H52.03 Hyperopia of both eyes H52.223 Regular astigmatism, bilateral H52.4 Presbyopia Comment: Stable glasses and contact lens barrera. I have confirmed and edited as necessary the relevant ophthalmic history, ROS, and the neuro exam findings as obtained by others. I have seen and examined Brenda Dick. I have discussed the case and the management of this patient's care with the Resident/Fellow, if applicable. I also have reviewed and agree with the assessment and plan as stated above and agree with all of its relevant components. Megha Vargas II, OD [facility] Instructions 01-17-2022 Patient Instructions Note Date & Type Note Facility 01-17-2022 Instructions Megha Vargas II, OD - 01/17/2022 3:46 PM EDT Assessment and Plan Z79.899 Long-term use of Plaquenil (primary encounter diagnosis) Comment: No ocular complications found secondary to use of Plaquenil. Continue regularly scheduled observation as instructed. Discussed need for early detection of ocular complications as they can continue to progress for a period of time even after medication is discontinued. H16.223 Keratoconjunctivitis sicca of both eyes not specified as Sjogren's Comment: Continue use of Tyrvaya nasal spray twice daily. Artificial tears as needed. H52.03 Hyperopia of both eyes H52.223 Regular astigmatism, bilateral H52.4 Presbyopia Comment: Stable glasses and contact lens barrera. I have confirmed and edited as necessary the relevant ophthalmic history, ROS, and the neuro exam findings as obtained by others. I have seen and examined Brenda Dick. I have discussed the case and the management of this patient's care with the Resident/Fellow, if applicable. I also have reviewed and agree with the assessment and plan as stated above and agree with all of its relevant components. Megha Vargas II, OD documented in this encounter [facility] History of Present illness Narrative 01-17-2022 Megha Vargas II, OD - 01/17/2022 3:45 PM EDT Note Date & Type Note Facility 01-17-2022 History of Presen t illness Narrative Assessment and Plan Z79.899 Long-term use of Plaquenil (primary encounter diagnosis) Comment: No ocular complications found secondary to use of Plaquenil. Continue regularly scheduled observation as instructed. Discussed need for early detection of ocular complications as they can continue to progress for a period of time even after medication is discontinued. H16.223 Keratoconjunctivitis sicca of both eyes not specified as Sjogren's Comment: Continue use of Tyrvaya nasal spray twice daily. Artificial tears as needed. H52.03 Hyperopia of both eyes H52.223 Regular astigmatism, bilateral H52.4 Presbyopia Comment: Stable glasses and contact lens barrera. I have confirmed and edited as necessary the relevant ophthalmic history, ROS, and the neuro exam findings as obtained by others. I have seen and examined Brenda Dick. I have discussed the case and the management of this patient's care with the Resident/Fellow, if applicable. I also have reviewed and agree with the assessment and plan as stated above and agree with all of its relevant components. Megha Vargas II, OD documented in this encounter [facility] Evaluation note Note Date & Type Note Facility Evaluation note Diagnosis Long-term use of Plaquenil- Primary Encounter for long-term (current) use of other medications Keratoconjunctivitis sicca of both eyes not specified as Sjogren's Keratoconjunctivitis sicca, not specified as Sjogren's Hyperopia of both eyes Regular astigmatism, bilateral Presbyopia documented in this encounter [facility] Evaluation note Note Date & Type Note Facility Evaluation note No assessment information availa ble [facility] Work Phone: Reason for referral (narrative) Note Date & Type Note Facility Reason for referral (narrative) No reason for referral information available [facility] Work Phone: Summary Purpose Family History No Family History Records FoundNo Family History Records FoundNo Family History Records FoundNo Family History Records FoundNo Family History Records Found Advance Directives No Advanced Directives Records Found Advance Directive Response Recorded Date/ Time Living Will No September 15, 2017 7:57pm Power of Bread Dumper No September 15 8 7:57pm Advance Directive Response Recorded Date/ Time Living Will No September 15, 2017 8:57pm Power of Bread Dumper No September 15 8 8:57pm Medications Administered Section Active Administered Medications - up to 3 most recent administrations Medication Order MAR Action Action Date Dose Rate Site fluorescein-benoxinate 0.25-0.4 % 1 Drop (FLURESS) 1 Drop, BOTH EYES, DIRECTED, Starting on Sun01/17/22 at 1530, Until Sun01/18/22 at 0329, Administer for applanation tonometry. In the event of a Fluress shortage, administer [place]-Fluor 1 drop into both eyes as directed for applanation tonometry Given 01/17/2022 3:30 PM EDT 1 Drop PHENYLephrine 2.5 % 1 Drop (AK-DILATE, YEISON-SYNEPHRINE) 1 Drop, BOTH EYES, DIRECTED, Starting on Sun01/17/22 at 1530, Until Sun01/18/22 at 0329, Administer for dilation PROTECT FROM LIGHT Given 01/17/2022 3:30 PM EDT 1 Drop tropicamide 1 % 1 Drop (MYDRIACYL) 1 Drop, BOTH EYES, DIRECTED, Starting on Sun01/17/22 at 1530, Until Sun01/18/22 at 0329, Administer for dilation Given 01/17/2022 3:30 PM EDT 1 Drop Additional Source Comments INFORMATION SOURCE (unrecogn ized section and content) DATE CREATED AUTHOR 09/12/2017 [facility] DATE CREATED AUTHOR AUTHOR'S ORGANIZ ATION 02/25/2018 [facility] DATE CREATED AUTHOR AUTHOR'S ORGANIZ ATION 02/25/2018 [facility] DATE CREATED AUTHOR AUTHOR'S ORGANIZ ATION 01/18/2022 [facility] DATE CREATED AUTHOR AUTHOR'S ORGANIZ ATION 12/21/2024 [facility] Source Comments (unrecognize d section and content) In the event this informatio n is protected by the Federal Confidentiality of Alcohol and Drug Abuse Patient Records regulations: The Federal rules restrict any use of the information to criminally investigate or prosecute any alcohol or drug abuse patient.[facility] Reason for Visit (unrecogniz ed section and content) Reason Comments Plaquenil Check Contact lens evaluation Care Teams (unrecognized sec tion and content) Boss Dyer Relationship Specialty Start Date End Date Sebastian Bullard DO [address] [facility] [facility] [place] [address] PCP - General Family Medicine 11/30/15 Team Status: Active Member Role Status Dates Dr. Sebastian Bullard DO Family Provider Active Dr. Sebastian Bullard DO Primary Care Provider Active Team Status: Inactive Member Role Status Dates Dr. Sebastian Bullard DO Primary Care Provider, Attendin g Provider Active Team Status: Inactive Member Role Status Dates Dr. Sebastian Bullard DO Primary Care Prov ider, Attending Provider, Referring Provider Active Team Status: Inactive Member Role Status Dates Dr. Sebastian Bullard DO Primary Care Provider Active Start: July 18, 2024 End: July 18, 2024 Dr. Sebastian Bullard DO Attending Provider Active Start: July 18, 2024 End: July 18, 2024 Dr. Sebastian Bullard DO Referring Provider Active Start: July 18, 2024 End: July 18, 2024 Team Status: Active Member Role/Relationship Status Dates Dr. Sebastian Bullard DO Primary care physician Active Team Status: Inactive Member Role/Relationship Status Dates Dr. Sebastian Bullard DO Primary care physician Active Start: December 10, 2024 End: December 10, 2024 Dr. Sebastian Bullard DO Attending physician Active Start: December 10, 2024 End: December 10, 2024 Dr. Sebastian Bullard DO Referring Provider Active Start: December 10, 2024 End: December 10, 2024 Goals (unrecognized section and content) Goals may be documented in a n alternate sectionGoals may be documented in an alternate sectionGoals may be documented in an alternate sectionGoals may be documented in an alternate section FOR RECORDS PERTAINING TO PATIENTS WHO ARE OR HAVE BEEN ENROLLED IN A CHEMICAL DEPENDENCY/SUBSTANCEABUSE PROGRAM, SOME INFORMATION MAY BE OMITTED. This clinical summary was aggregated from multiple sources. Caution should be exercised in using it in the provision of clinical care. This summary normalizes information from multiple sources, and as a consequence, information in this document may materially change the coding, format and clinical context of patient data. In addition, data may be omitted in some cases. CLINICAL DECISIONS SHOULD BE BASED ON THE PRIMARY CLINICAL RECORDS. [employer] provides no warranty or guarantee of the accuracy or completeness of information in this document.
--- NOTE | 2025-02-07 13:57 | ED.RN ---
PT DENIES SI/HI TO TO THIS RN. PT ALSO STATES SHE TOOK HER PRESCRIBED AMOUNT OF MEDS.
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
[2025-02-07 14:29] LABS: Hematocrit 44.6 % (37-47); Hemoglobin 14.7 g/dL (12.0-15.0); Immature Granulocytes Count 0.040 X10^3/uL (0.0-0.0); Mean Corp Hgb Conc 33.0 g/dL (32-36); Mean Corpuscular Volume 93.7 fL (81-99); Mean Platelet Vol. 10.5 fl (6.2-12.0); NRBC Flagged by Analyzer 0 % (0-5); Platelet Count 294 K/mm3 (150-450); RBC Distribution Width CV 12.9 % (11.6-14.6); RBC Distribution Width SD 44.1 fl (35.1-43.9); Red Blood Count 4.76 M/mm3 (4.2-5.4); White Blood Count 12.2 K/mm3 (4.4-11.0)
[2025-02-07 15:02] LABS: Alcohol, Blood (Medical)-Serum < 10.1 mg/dL (<=10.0)
[2025-02-07 15:03] LABS: AST(SGOT) 19 U/L (<=31); Alanine Aminotransfer ALT/SGPT 12 U/L (<=34); Albumin, Serum 4.3 g/dL (3.4-4.8); Alkaline Phosphatase 104 U/L (35-104); Anion Gap 11 (5-15); BUN 15 mg/dL (4-19); BUN/Creat Ratio 17.7 RATIO (10-20); Calcium,Total 9.2 mg/dL (7.6-11.0); Carbon Dioxide 26.5 mmol/L (21.0-32.0); Chloride 105 mmol/L (98-108); Estimated Creatinine Clearance 44.75 ml/min (50-250); Globulin 2.8 g/dL (2.2-4.2); Glucose 98 mg/dL (70-99); Potassium 3.4 mmol/L (3.3-5.1)
[2025-02-07 15:07] LABS: Barbiturate Urine PRESUMPTIVE POSITIVE (< 200 ng/mL); Benzodiazepine Urine PRESUMPTIVE POSITIVE (< 200 ng/mL); PCP Urine NEGATIVE (< 25 ng/mL); THC Urine PRESUMPTIVE POSITIVE (< 50 ng/mL)
--- NOTE | 2025-02-07 18:52 | CM.ED ---
Social work SW presented to hallway near patient's room to talk with [facility] if necessary. Patient was observed making statements about not being suicidal and taking the normal amount of medications. Patient was observed being uncooperative initially with nursing, but ultimately getting changed into a gown without issue. SW had Crisis called due to another mental health situation. Judy from Crisis arrived and SW updated on situation. Crisis reportedly to place. Teresa Waggoner, REGIONAL CLINICAL DIRECTOR, SNOW REMOVING SUPERVISOR
--- NOTE | 2025-02-07 18:55 | CM.ED ---
Social work -- FAMILY NUMBERS Patient's daughter, Karime and sister, Cassandra provided phone numbers should they be needed in emergency situations for the future or for collaborative information for today's situation. These numbers were passed on to Judy from Crisis. Patient denied having these added to face sheet at this time. Karime: [phone] Cassandra: [phone] Teresa Waggoner, SAW MAN, MEDICAL AND HEALTH SERVICES MANAGER
--- NOTE | 2025-02-07 20:18 | PCA ---
CHART FAXED TO CRISIS
--- NOTE | 2025-02-07 21:04 | PCA ---
PT ACCEPTED [facility] INTAKE UNIT [id number] [phone] LOCAL [facility] ARRANGED FOR TRANSPORT
--- NOTE | 2025-02-07 21:40 | ED.RN ---
Home medications not ordered due to pt possible overdose.
[2025-02-07 22:32] VITALS: BP 112/55; PULSE 85; RESP 20; O2SAT 95
--- NOTE | 2025-02-07 23:12 | ED.RN ---
RN into room to obtain vital signs. informed pt that she would be placed @ [facility] for psychiatric evaluation. pt became angry stating that she does not have time for a psychiatric stay and doesn't need to go. RN informed pt that she has a pink slip in place and is obligated to go for evaluation. Pt yelling stating [facility] has not fed pt or given her her medications. RN informed pt that she was given food and inable to give home medications because she had an intentional overdose earlier in the day. Pt rolled over in bed angry. RN left room, pt then threw package of cookies at wall. RN back into room, informed pt she is not to be throwing things in her room especially with sitter @ bedside. pt stated i can throw whatever I want Pt out of bed and into hallway attempting to leave department. multiple staff members following pt and [facility] security. Pt escorted back into room by security. RN informed pt that jewelry needed to be removed for pt safety but would be placed with her belongings. Pt ripped off necklace and both earrings and threw them @ staff. Informed again that pt is not meant to be throwing things at staff or in general. Pt turned away from all staff members and began to hit head on wall stating, you think I'm crazy I'll show you crazy pt continues to hit self and hit head on wall. notified. Spoke with staff @ [facility], informed that pt is allowed to be medicated prior to being transported, but would have to wait 4 hours after restraints are taken off to be transported to their facility. Informed MD, order for Zyprexa given to ensure staff and pt safety.
[2025-02-07 23:53] VITALS: BP 112/55; PULSE 85; RESP 16; TEMP 36.1; O2SAT 95
[2025-02-07 23:59] VITALS: PULSE 82; RESP 16; O2SAT 98
== END 2025-02-08 00:21 ==
PROVIDERS: Emergency Provider Emergency Medicine; PCP Family Medicine; Visit Provider Emergency Medicine
DX: R45.851 Suicidal ideations (principal); F29 Unspecified psychosis not due to a substance or known physiological condition; F41.9 Anxiety disorder, unspecified; F17.210 Nicotine dependence, cigarettes, uncomplicated; Z79.899 Other long term (current) drug therapy
CPT/HCPCS: 36415; 80053; 80307; 82077; 85025; 96372; 99285